=== PATIENT | female | born 1985 | race Caucasian/White ===

== ENCOUNTER 2019-06-22 00:34 | Emergency (ER) | payer OTHER ==
[~2019-06-22] VITALS: Ht 165.1 cm; Wt 81.6 kg
[~2019-06-22 00:34] MED LIST: METHYLDOPA250 MG PO; PRENA1 PLUS CO1 EACH PO
[2019-06-22] MEDS ORDERED: VENTOLIN HFA18 GM INH (00:44)
[2019-06-22] MEDS ORDERED: VENTOLIN HFA18 GM (00:45)
[2019-06-22] MEDS ORDERED: PREDNISONE20 MG PO (02:51)
[2019-06-22] MEDS ORDERED: IPRAT-ALBUT 0.5-3 ML INH (02:51)
--- NOTE | 2019-06-22 16:14 | EKG ---
[facility] [address] [facility] [place] [address] Signed Sinus tachycardia Biatrial enlargement T wave abnormality, consider inferior ischemia Abnormal ECG No previous ECGs available Confirmed by JOSE SANDERS MD ([id number]) on 06/22/2019 4:14:02 PM Electronically Signed By: JOSE SANDERS MD 06/22/19 1614 PATIENT NAME: JOLENE BELLORA RODRIGUEZ Electrocardiogram DATE OF : 83 PHYSICIAN: JOSE SANDERS MD REPORT #: [id number] REPORT IS CONFIDENTIAL AND NOT TO BE RELEASED WITHOUT AUTHORIZATION
== END 2019-06-22 02:57 | disposition home or self-care (01) ==
LOC: ED 00:34
DX: J45.901 Unspecified asthma with (acute) exacerbation (principal); I10 Essential (primary) hypertension; F17.200 Nicotine dependence, unspecified, uncomplicated
CPT/HCPCS: 71045; 80053; 83735; 84484; 84703; 85025; 93005; 93010; 94640; 96374; 96375; 96376; 99285-25; J2270; J2405; J2930; J7030

== ENCOUNTER 2019-12-10 23:03 | Emergency (ER) | payer OTHER ==
[~2019-12-10] VITALS: Ht 167.6 cm; Wt 81.7 kg
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
--- OUTSIDE RECORDS SUMMARY | ~2019-12-10 | XMS | Encounter Summary ---
Demographics + + + | Address | [address] | | | [place] [address] | + + + | Home Phone | | + + + | Preferred Language | Unknown | + + + | Marital Status | | + + + | Judaism Affiliation | Unknown | + + + | Race | Unknown | + + + | Ethnic Group | Unknown | + + + Author + + + | Author | [facility] | | | and [place] | + + + | Organization | [facility] | | | and [place] | [...] Team Providers + +------+ + | Care Manager Wellness Name | Role | Phone | + +------+ + | Leeanne Denny | PCP | | + +------+ + Reason for Visit +--------+ + | Reason | Comments | +--------+ + | Other | PATRICIO for azelastine | +--------+ + Encounter Details +--------+ + + + + | Date | Type | Department | Care Team | Description | +--------+ + + + + | 11/11/ | Documentati | [facility] | Keerthi, | Other (PATRICIO for | | 2019 | on | PULMONOLOGY [address] | Juli Barrios [facility] | brianda) | | | | [address] | Lens Assistant | | | | | [place], [place] | | | | | | [address] | | | | | | [phone] | | | +--------+ + + + + Social History + +-------+ +--------+------+ | Tobacco Use | Types | Packs/Day | Years | Date | | | | | Used | | + +-------+ +--------+------+ | Current Some Day | | | | | | Smoker | | | | | + +-------+ +--------+------+ + +---+---+---+ | Smokeless Tobacco: | | [...] + + documented as of this encounter Progress Notes Juli Pendleton, Bobcat Operator - 11/12/2019 8:28 AM PDTPA for azelastine w as approved. Labeled and scanned approval into pt chart documented in this encounter Plan of Treatment +--------+ + + + + | Date | Type | Specialty | Care Team | Description | +--------+ + + + + | 12/22/ | Virtual | Pulmonology | Ramandeep Betts, | | 2019 | Office | | [facility] | | | | Visit | | [address] [place], | | | | | | [place] [address] | | | | | | [phone] | | | | | | | | +--------+ + + + + documented as of this encounter Visit Diagnoses Not on filedocumented in this encounter"
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
--- OUTSIDE RECORDS SUMMARY | ~2019-12-10 | XMS | Clinical Summary ---
Demographics + + + | Address | [address] | | | [place] [address] | + + + | Home Phone | | + + + | Preferred Language | Unknown | + + + | Marital Status | | + + + | Mandaeism Affiliation | Unknown | + + + | Race | Unknown | + + + | Ethnic Group | Unknown | + + + Author + + + | Author | [facility] | | | and [place] | + + + | Organization | [facility] | | | and [place] [...] Team Providers + +------+ + | Care News Technical Director Name | Role | Phone | + +------+ + | Leeanne Denny | PCP | | + +------+ + Allergies No Known Allergies Medications + + + +---------+------+------+-------+ | Medication | Sig | Dispensed | Refills | Star | End | Statu | | | | | | t | Date | s | | | | | | Date | | | + + + +---------+------+------+-------+ | lisinopril | | | 0 | 01/2 | | Activ | | (PRINIVIL, ZESTRIL) | | | | 9/20 | | e | | 10 mg tablet | | | | 20 | | | + + + +---------+------+------+-------+ | | | | 0 | 02/1 | | Activ | | albuterol-ipratropiu | | | | 8/20 | | e | | m 2.5-0.5 mg/3 mL | | | | 20 | | | | SOLN | | | | | | | + + + +---------+------+------+-------+ | CHANTIX STARTING | | | 0 | 02/1 | | Activ | | MONTH CHANDA 0.5 MG X | | | | 8/20 | | e | | 11 & 1 MG X 42 | | | | 20 | | | | tablet | | | | | | | + + + +---------+------+------+-------+ | fluticasone | 1 spray by Nasal | 18.2 mL | 11 | 03/1 | | Activ | | (FLONASE) 50 | route 2 times daily. | | | 0/20 | | e | | mcg/nasal | | | | 20 | | | | sprayIndications: | | | | | | | | Seasonal allergic | | | | | | | | rhinitis due to | | | | | | | | pollen | | | | | | | + + + +---------+------+------+-------+ | montelukast | Take 1 tablet by | 30 | 11 | 03/1 | | Activ | | (SINGULAIR) 10 mg | mouth Daily. | tablet | | 0/20 | | e | | tabletIndications: | | | | 20 | | | | Moderate persistent | | | | | | | | asthma without | | | | | | | | complication, | | | | | | | | Seasonal allergic | | | | | | | | rhinitis due to | | | | | | | | pollen | | | | | | | + + + +---------+------+------+-------+ | famotidine | Take 1 tablet by | 60 | 5 | 03/1 | | Activ | | (PEPCID) 20 mg | mouth 2 times daily. | tablet | | 0/20 | | e | | tabletIndications: | | | | 20 | | | | Gastroesophageal | | | | | | | | reflux disease, | | | | | | | | esophagitis presence | | | | | | | | not specified | | | | | | | + + + +---------+------+------+-------+ | albuterol 2.5 mg/3 | Take 3 mLs by | 120 | 4 | 03/1 | | Activ | | mL nebulizer | nebulization every 4 | vial | | 0/20 | | e | | solutionIndications: | hours as needed for | | | 20 | | | | Moderate persistent | Wheezing or | | | | | | | asthma without | Shortness of Breath. | | | | | | | complication | | | | | | | + + + +---------+------+------+-------+ | | take 1 tablet by | | 0 | 03/1 | | Activ | | lisinopril-hydrochlo | mouth every morning | | | 8/20 | | e | | rothiazide | | | | 20 | | | | (PRINZIDE,ZESTORETIC | | | | | | | | ) 20-25 MG per | | | | | | | | tablet | | | | | | | + + + +---------+------+------+-------+ | | Inhale 2 puffs into | 1 | 11 | 04/0 | | Activ | | fluticasone-salmeter | the lungs 2 times | Inhaler | | 7/20 | | e | | ol (ADVAIR HFA) | daily. | | | 20 | | | | 115-21 MCG/ACT | | | | | | | | inhalerIndications: | | | | | | | | Severe persistent | | | | | | | | asthma without | | | | | | | | complication | | | | | | | + + + +---------+------+------+-------+ | cetirizine | Take 1 tablet by | 30 | 11 | 04/0 | | Activ | | (ZYRTEC) 10 mg | mouth Daily. | tablet | | 7/20 | | e | | tabletIndications: | | | | 20 | | | | Seasonal allergic | | | | | | | | rhinitis due to | | | | | | | | pollen | | | | | | | + + + +---------+------+------+-------+ | tiotropium | Inhale 2 puffs into | 1 | 11 | 04/0 | | Activ | | (SPIRIVA RESPIMAT) | the lungs Daily. | Inhaler | | 7/20 | | e | | 1.25 mcg/puff | | | | 20 | | | | inhalerIndications: | | | | | | | | Severe persistent | | | | | | | | asthma without | | | | | | | | complication | | | | | | | + + + +---------+------+------+-------+ | azelastine 0.1% | 1 spray by Nasal | 30 mL | 11 | 04/2 | | Activ | | nasal | route 2 times daily. | | | 8/20 | | e | | sprayIndications: | Use in each nostril | | | 20 | | | | Seasonal allergic | twice a day | | | | | | | rhinitis due to | | | | | | | | pollen | | | | | | | + + + +---------+------+------+-------+ | budesonide | Take 2 mLs by | 15 vial | 2 | 05/1 | | Activ | | (PULMICORT) 0.5 mg/2 | nebulization 2 times | | | 2/20 | | e | | mL nebulizer | daily. If you | | | 20 | | | | solutionIndications: | choose to come off | | | | | | | Severe persistent | of the prednisone | | | | | | | asthma with acute | tabs for a few days, | | | | | | | exacerbation | use these in combo | | | | | | | | w/ inhalers and | | | | | | | | albuterol nebs. | | | | | | + + + +---------+------+------+-------+ | predniSONE | Take 2 tabs x 4 | 20 | 0 | 05/1 | | Activ | | (DELTASONE) 20 mg | days, 1.5 tabs x 4 | tablet | | 2/20 | | e | | tabletIndications: | days, 1 tab x 4 | | | 20 | | | | Severe persistent | days, 0.5 tab x 4 | | | | | | | asthma with acute | days. Stop. | | | | | | | exacerbation | | | | | | | + + + +---------+------+------+-------+ | benralizumab | Inject | 1 mL | 11 | 05/1 | | Activ | | (FASENRA) 30 mg/mL | subcutaneously Q 4 | | | 9/20 | | e | | injection | weeks x 3 doses then | | | 20 | | | | (syringe)Indications | Q 8 weeks | | | | | | | : Severe persistent | therafter. | | | | | | | asthma with acute | | | | | | | | exacerbation | | | | | | | + + + +---------+------+------+-------+ | albuterol 90 | Inhale 2 puffs into | 1 | 11 | 06/0 | | Activ | | mcg/puff | the lungs every 4 | Inhaler | | 2/20 | | e | | inhalerIndications: | hours as needed for | | | 20 | | | | Severe persistent | Wheezing or | | | | | | | asthma with acute | Shortness of Breath | | | | | | | exacerbation | (10-15min before | | | | | | | | strenuous activity). | | | | | | + + + +---------+------+------+-------+ | predniSONE | Take 40mg x 5 days | 40 | 0 | 06/0 | | Activ | | (DELTASONE) 20 mg | then 20mg | tablet | | 2/20 | | e | | tabletIndications: | thereafter. | | | 20 | | | | Severe persistent | | | | | | | | asthma with acute | | | | | | | | exacerbation | | | | | | | + + + +---------+------+------+-------+ | albuterol 90 | Inhale 2 puffs into | 2 | 11 | 03/1 | 06/0 | Disco | | mcg/puff | the lungs every 4 | Inhaler | | 0/20 | 2/20 | ntinu | | inhalerIndications: | hours as needed for | | | 20 | 20 | ed | | Moderate persistent | Wheezing or | | | | | | | asthma without | Shortness of Breath. | | | | | | | complication | | | | | | | + + + +---------+------+------+-------+ | predniSONE | Take 2 tabs x 4 | 20 | 0 | 04/2 | 05/1 | Disco | | (DELTASONE) 20 mg | days, 1.5 tabs x 4 | tablet | | 8/20 | 2/20 | ntinu | | tabletIndications: | days, 1 tab x 4 | | | 20 | 20 | ed | | Severe persistent | days, 0.5 tab x 4 | | | | | (Reor | | asthma with acute | days. Stop. | | | | | dagoberto) | | exacerbation | | | | | | | + + + +---------+------+------+-------+ Active Problems + + + | Problem | Noted Date | + + + | Moderate persistent asthma without complication | 09/16/2019 | + + + | Seasonal allergic rhinitis due to pollen | 09/16/2019 | + + + | Gastroesophageal reflux disease | 09/16/2019 | + + + | Essential hypertension | 09/16/2019 | + + + Encounters +--------+ + + + + | Date | Type | Specialty | Care Team | Description | +--------+ + + + + | 12/08/ | Virtual | Pulmonology | Ramandeep Betts, | Severe persistent | | 2020 | Office | | [employer] | asthma with acute | | | Visit | | | exacerbation | | | | | | (Primary Dx); | | | | | | Seasonal allergic | | | | | | rhinitis due to | | [...] disturbance | +--------+ + + + + | 12/02/ | Documentati | Pulmonology | Keerthi, | Other (faxed fasenra | | 2019 | on | | Evans Rinal[facility] | papers) | | | | | Production Sanitizer | | +--------+ + + + + | 12/01/ | Documentati | Pulmonology | Keerthi, | Other (chart notes | | 2019 | on | | [facility] | from PCP) | | | | | Production Sanitizer | | +--------+ + + + + | 12/01/ | Documentati | Pulmonology | Keerthi, | Other (Asthma | | 2019 | on | | [facility] | control test) | | | | | Production Sanitizer | | +--------+ + + + + | 11/24/ | Office | Pulmonology | Ramandeep Betts, | Severe persistent | | 2019 | Visit | | [employer] | asthma with acute | | | | | | exacerbation | | | | | | (Primary Dx); | | | | | | Seasonal allergic | | | | | | rhinitis due to | | [...] disturbance | +--------+ + + + + | 11/23/ | Telephone | Pulmonology | Ramandeep Betts, | Other (appointment | 2019 | | | [employer] | screening) | +--------+ + + + + | 11/17/ | Virtual | Pulmonology | Ramandeep Betts, | Severe persistent | 2019 | Office | | [employer] | asthma with acute | | | Visit | | | exacerbation | | | | | | (Primary Dx); | | | | | | Seasonal allergic | | | | | | rhinitis due to | | [...] disturbance | +--------+ + + + + | 11/11/ | Documentati | Pulmonology | Keerthi, | Other (PA for | | 2019 | on | | [facility] | brianda) | | | | | Production Sanitizer | | +--------+ + + + + | 11/03/ | Virtual | Pulmonology | Ramandeep Betts, | Severe persistent | | 2019 | Office | | EXP[employer] HAND | asthma with acute | | | Visit | | | exacerbation | | | | | | (Primary Dx); | | | | | | Seasonal allergic | | | | | | rhinitis due to | | [...] disturbance | +--------+ + + + + | 11/02/ | Documentati | Pulmonology | Keerthi, | Other (request | | 2020 | on | | [facility] | records from [place] | | | | | [employer] | sleep cntr) | +--------+ + + + + | 10/13/ | Virtual | Pulmonology | Ramandeep Betts, | Severe persistent | | 2020 | Office | | EXP[employer] | asthma without | | | Visit | | | complication | | | | | | (Primary Dx); | | | | | | Seasonal allergic | | | | | | rhinitis due to | | [...] disturbance | +--------+ + + + + | 09/17/ | Documentati | Pulmonology | Keerthi, | Other (records from | | 2019 | on | | [facility] | PCP) | | | | | Production [employer] | | +--------+ + + + + | 09/15/ | Office | Pulmonology | Ramandeep Betts, | Moderate persistent | 2019 | Visit | | [employer] | asthma without | | | | | | complication | | | | | | (Primary Dx); | | | | | | Seasonal allergic | | | | | | rhinitis due to | | | | | | pollen; | | | | | | Gastroesophageal | | | | | | reflux disease, | | | | | | esophagitis presence | | | | | | not specified; | | | | | | Tobacco use | +--------+ + + + + | 09/15/ | Orders Only | | Robyn Sultana, | Moderate persistent | | 2019 | | | Television T[employer] | asthma without | | | | | | complication; | | | | | | Seasonal allergic | | | | | | rhinitis due to | | | | | | pollen | +--------+ + + + + from Last 3 Months Social History + +-------+ +--------+ + | [...] recent travel history available. | + + Last Filed Vital Signs + + + [...] | | + + + + + Plan of Treatment +--------+ + + + + | Date | Type | Specialty | Care Team | Description | +--------+ + + + + | 12/22/ | Virtual | Pulmonology | Ramandeep Betts, | | | 2019 | Office | | [facility] | | | | Visit | | [address], | | | | | | [place] [address] | | | | | | [phone] | | | | | | | | +--------+ + + + + + + + + + | Health Maintenance | Due Date | Last Done | Comments | + + + + + | Vaccine: | | | | | Pneumococcal 19-64 | 1 | | | | (1 of 1 - PPSV23) | | | | + + + + + | Cervical Cancer | | | | | Screening (Pap) | 5 | | | + + + + + | Vaccine: | | 08/06/2013, 11/22/2007, | | | Dtap/Tdap/Td (7 - | 4 | 03/01/1998, Additional history | | | Td) | | exists | | + + + + + | Vaccine: Influenza | Completed | 06/20/2019, 04/16/2013 | | + + + + + Procedures + +--------+ + + + | Procedure Name | Priori | Date/Time | Associated Diagnosis | Comments | | | ty | | | | + +--------+ + + + | ALLERGEN PANEL, | Routin | 09/16/2019 | Moderate | Results for this | | [facility] | e | 10:48 AM | persistent asthma | procedure are in the | | | | PDT | without complication | results section. | | | | | Seasonal allergic | | | | | | rhinitis due to | | | | | | pollen | | + +--------+ + + + | CBC WITH | Routin | 09/16/2019 | Moderate | Results for this | | DIFFERENTIAL | e | 10:48 AM | persistent asthma | procedure are in the | | | | PDT | without complication | results section. | + +--------+ + + + from Last 3 Months Results Allergen Panel, [facility] (09/16/2019 10:48 AM PDT) + + + + + + | Component | Value | Ref Range | Performed | Pathologist | | | | | At | Signature | + + + + + + | Class | (See Below)Comment: | | REFERENCE | | | Description | Levels of Specific IgE | | LAB | | | | Class | | [facility] | | | | Description of Class | | LABORATORY | | | | | | | | | | | | | | | | --- ----- | | | | | | | | | | | | | | | | | | < 0.10 0 | | | | | | Negative | | | | | | 0.10 - | | | | | | 0.31 0/I | | | | | | Equivocal/Low | | | | | | 0.32 - | | | | | | 0.55 I | | | | | | Low | | | | | | 0.56 - 1.40 | | | | | | II | | | | | | Moderate | | | | | | 1.41 - 3.90 | | | | | | III High | | | | | | 3.91 - | | | | | | 19.00 IV | | | | | | Very High | | | | | | 19.01 - 100.00 | | | | | | V | | | | | | Very High | | | | | | >100.00 | | | | | | | | | | | | Very High | | | | + + + + + + | Immunoglobu | 335 | 6 - 495 IU/mL | REFERENCE | | | jeb IgE | | | LAB | | | | | | [facility] | | | | | | LABORATORY | | + + + + + + | D. | 0.17 (A) | Class 0/I kU/L | REFERENCE | | | Pteronyssin | | | LAB | | | us IgE | | | [facility] | | | | | | LABORATORY | | + + + + + + | Cat Dander | <0.10 | Class 0 kU/L | REFERENCE | | | IgE | | | LAB | | | | | | [facility] | | | | | | LABORATORY | | + + + + + + | Dog Dander | 0.11 (A) | Class 0/I kU/L | REFERENCE | | | IgE | | | LAB | | | | | | [facility] | | | | | | LABORATORY | | + + + + + + | Rosalio | <0.10 | Class 0 kU/L | REFERENCE | | | Grass IgE | | | LAB | | | | | | [facility] | | | | | | LABORATORY | | + + + + + + | Cockroach, | <0.10 | Class 0 kU/L | REFERENCE | | | Scottish IgE | | | LAB | | | | | | [facility] | | | | | | LABORATORY | | + + + + + + | ALLERGEN | <0.10 | Class 0 kU/L | REFERENCE | | | ALTERNARIA | | | LAB | | | ALTERNATA | | | [facility] | | | IGE | | | LABORATORY | | + + + + + + | Trotter Marci | 0.41 (A) | Class I kU/L | REFERENCE | | | IgE | | | LAB | | | | | | [facility] | | | | | | LABORATORY | | + + + + + + | [place] | 0.75 (A) | Class II kU/L | REFERENCE | | | IgE | | | LAB | | | | | | [facility] | | | | | | LABORATORY | | + + + + + + | SILVER | 0.34 (A) | Class I kU/L | REFERENCE | | | BIRCH, IGE | | | LAB | | | | | | [facility] | | | | | | LABORATORY | | + + + + + + | [place] | 0.18 (A) | Class 0/I kU/L | REFERENCE | | | IgE | | | LAB | | | | | | [facility] | | | | | | LABORATORY | | + + + + + + | [place] | 0.47 (A) | Class I kU/L | REFERENCE | | | IgE | | | LAB | | | | | | [facility] | | | | | | LABORATORY | | + + + + + + | Pigweed | <0.10 | Class 0 kU/L | REFERENCE | | | Grass IgE | | | LAB | | | | | | [facility] | | | | | | LABORATORY | | + + + + + + | Barb[place] | <0.10 | Class 0 kU/L | REFERENCE | | | Thistle IgE | | | LAB | | | | | | [facility] | | | | | | LABORATORY | | + + + + + + | Allergen | 0.13 (A)Comment: Testing | Class 0/I kU/L | REFERENCE | | | Ragweed, | performed by [facility], | | LAB | | | [facility] | [address], | | [facility] | | | | [facility] [address] | | LABORATORY | | + + + + + + + + | Specimen | + + | Blood | + + + + + + + | Performing | Address | City/State/Zipcode | Phone Number | | Organization | | | | + + + + + | REFERENCE LAB | [address] | [place] | [phone] | | [facility] | [address] | [address] | | | LABORATORY | | | | + + + + + | REFERENCE LAB | [address] | [place] | | | [facility] | [address] | [address] | | | LABORATORY | | | | + + + + + CBC with Differential (09/16/2019 10:48 AM PDT) + + + + + + | Component | Value | Ref Range | Performed | Pathologist | | | | | At | Signature | + + + + + + | WBC | 9.84 | 3.80 - 11.00 | REFERENCE | | | | | K/uL | LAB | | | | | | [facility] | | | | | | LABORATORY | | + + + + + + | RBC | 4.54 | 3.70 - 5.10 | REFERENCE | | | | | M/uL | LAB | | | | | | [facility] | | | | | | LABORATORY | | + + + + + + | Hemoglobin | 15.2 | 11.3 - 15.5 | REFERENCE | | | | | g/dL | LAB | | | | | | [facility] | | | | | | LABORATORY | | + + + + + + | Hematocrit | 43.5 | 34.0 - 46.0 % | REFERENCE | | | | | | LAB | | | | | | [facility] | | | | | | LABORATORY | | + + + + + + | MCV | 95.8 | 80.0 - 100.0 fl | REFERENCE | | | | | | LAB | | | | | | [facility] | | | | | | LABORATORY | | + + + + + + | MCH | 33.4 | 27.0 - 34.0 pg | REFERENCE | | | | | | LAB | | | | | | [facility] | | | | | | LABORATORY | | + + + + + + | MCHC | 34.9 | 32.0 - 35.5 | REFERENCE | | | | | g/dL | LAB | | | | | | [facility] | | | | | | LABORATORY | | + + + + + + | RDW-SD | 43.3 | 37 - 53 fl | REFERENCE | | | | | | LAB | | | | | | [facility] | | | | | | LABORATORY | | + + + + + + | Platelet | 263 | 150 - 400 K/uL | REFERENCE | | | Count | | | LAB | | | | | | [facility] | | | | | | LABORATORY | | + + + + + + | MPV | 9.1 | fl | REFERENCE | | | | | | LAB | | | | | | [facility] | | | | | | LABORATORY | | + + + + + + | Diff Type | AUTOMATED | | REFERENCE | | | | | | LAB | | | | | | [facility] | | | | | | LABORATORY | | + + + + + + | % | 59.79 | % | REFERENCE | | | Neutrophils | | | LAB | | | | | | [facility] | | | | | | LABORATORY | | + + + + + + | % | 27.95 | % | REFERENCE | | | Lymphocytes | | | LAB | | | | | | [facility] | | | | | | LABORATORY | | + + + + + + | Monocyte % | 5.57 | % | REFERENCE | | | | | | LAB | | | | | | [facility] | | | | | | LABORATORY | | + + + + + + | Eosinophils | 5.32 | % | REFERENCE | | | % | | | LAB | | | | | | [facility] | | | | | | LABORATORY | | + + + + + + | Basophils % | 1.37 | % | REFERENCE | | | | | | LAB | | | | | | [facility] | | | | | | LABORATORY | | + + + + + + | Neutrophils | 5.88 | 1.90 - 7.40 | REFERENCE | | | , Absolute | | K/uL | LAB | | | | | | [facility] | | | | | | LABORATORY | | + + + + + + | Absolute | 2.75 | 1.00 - 3.90 | REFERENCE | | | Lymphocytes | | K/uL | LAB | | | | | | [facility] | | | | | | LABORATORY | | + + + + + + | Absolute | 0.55 | 0.00 - 0.80 | REFERENCE | | | Monocytes | | K/uL | LAB | | | | | | [facility] | | | | | | LABORATORY | | + + + + + + | Eosinophils | 0.52 (H) | 0.00 - 0.50 | REFERENCE | | | , Absolute | | K/uL | LAB | | | | | | [facility] | | | | | | LABORATORY | | + + + + + + | Basophils, | 0.14 (H)Comment: Testing | 0.00 - 0.10 | REFERENCE | | | Absolute | performed at [facility];[address] | K[address] | LAB | | | | [address] | | [facility] | | | | [address];[place] [address] | | LABORATORY | | + + + + + + + + | Specimen | + + | Blood | + + + + + + + | Performing | Address | City/State/Zipcode | Phone Number | | Organization | | | | + + + + + | REFERENCE LAB | [address] | [place] | [phone] | | [facility] | [address] | [address] | | | LABORATORY | | | | + + + + + | REFERENCE LAB | [address] | [place] | | | [facility] | [address]. | [address] | | | LABORATORY | | | | + + + + + from Last 3 Months Insurance + +--------+ +--------+ +---------+--------+ | Payer | Benefi | Subscriber | Effect | Phone | Address | Type | | | t Plan | ID | agnes | | | | | | / | | Dates | | | | | | Group | | | | | | + +--------+ +--------+ +---------+--------+ | [employer] | [employer] | [id number] | | [phone] | | Medica | | MEDICAID HMO | HEALTH | | [phone]-Pr | 1 | | id | | | MDCD | | esent | | | | | | [place]MO [place] | | | | | | + +--------+ +--------+ +---------+--------+ + +--------+ +--------+ + + | Guarantor Name | Accoun | Relation to | Date | Phone | Billing Address | | | t Type | Patient | of | | | | | | | | | | + +--------+ +--------+ + + | Kyle Martinez | Person | Self [birth year] | [address] | | | al/Fam | | 1986 | [phone] | [place] [address] | | | damion | | | 8 (Home) | | | | | | | [phone] | | | | | | | 1 (Work) | | + +--------+ +--------+ + + Advance Directives + + + + + | Type | Date Recorded | Patient | Explanation | | | | Mail Carrier Technician | | + + + + + | Power of | | | | | Tenterer | | | | + + + + + | Advance | | | | | Directive | | | | + + + + +
--- OUTSIDE RECORDS SUMMARY | ~2019-12-10 | XMS | Encounter Summary ---
Demographics + + + | Address | [address] | | | [place] [address] | + + + | Home Phone | | + + + | Preferred Language | Unknown | + + + | Marital Status | | + + + | Adventist Affiliation | Unknown | + + + | Race | Unknown | + + + | Ethnic Group | Unknown | + + + Author + + + | Author | [facility] | | | and [place] | + + + | Organization | [facility] | | | and [place] [...] Team Providers + +------+ + | Care Kiln Door Repairer Name | Role | Phone | + [...] | | | (acute) | [place], | [place], [place] | | | | | exacerbation | [place] | [address] | | | | | | [address] | Phone: | | | | | | Phone: | [phone] | | | | | | [phone] | Fax: | | | | | | Fax: | [phone] | | | | | | [phone] | | + +--------+ + + + + Encounter Details +--------+ + + + + | Date | Type | Department | Care Team | Description | +--------+ + + + + | 11/03/ | Virtual | [facility] | Ramandeep Betts, | Severe persistent | | 2019 | Office | PULMONOLOGY [address] | HOUSEKEEPER [address] | asthma with acute | | | Visit | KATHRIN COREA | [address] [place], | exacerbation | | | | [place], [place] | [place] [address] | (Primary Dx); | | | | [address] | [phone] | Seasonal allergic | | | | [phone] | | rhinitis due to | | [...] documented as of this encounter Progress Notes Ramandeep Betts ARNP - 11/04/2019 10:30 AM PDTFormatting of this note might be different fr om the original. Subjective: Patient ID: Kyle Martinez is a 34 y.o. female. History of moderate persistent asthma, HTN, anxiety, anemia, current smoker. Initial HPI 09/16/19: Kyle Martinez is a [...] appetite, or unintentional weight loss. Interval HPI 11/04/19: Kyle Martinez is a 34 y.o. female presenting today for a virtual vis it. She has chosen this method of follow up to limit her potential exposure to COVID19. This exam was initially conducted via a secure 256-bit AES encrypted bidirectional video se ssion. Service was provided [id number] with the patient via interactive videoconferencing Video start time 1030 Video end time 1055 Total time (in minutes) including non gjuy-ou-tfhl time (reviewing records, documentation, etc..) 35min You have chosen to receive care through the use of telemedicine. Telemedicine enables [facility] care providers at different locations to provide [...] where are you physically located right now? [place], [place] Answer: Patient confirms they are located in a state where Ramandeep Vasquez HOUSEKEEPER am lice nsed ([place]) She reports today she is coughing and having more shortness of breath in last week. Using a lbuterol nebs BID with good relief of dry cough and dyspnea. Coughing throughout the day and night. Sleep is poorly affected by the cough this week. She denies any constitutional sympt oms in association with respiratory symptoms. The patient reports the following: DYSPNEA: with minimal exertion x 2 weeks. She notes a good initial response to addition of advair and spiriva for 2 weeks she felt well controlled, but with beginning of spring , symptoms have been poorly controlled again. COUGH: throughout the day, barking and dry in nature. Clear phlegm only in the mornings. ACUTE EXACERBATION: currently exacerbated today. reports 3 exacerbations since July, 0. EXPOSURES: current smoker. She is trying to cut back with use of chantix. Now down to a c igarette every few days EXERCISE: no formal exercise lately. ACTIVITIES OF DAILY LIVING: able to complete without dyspnea. CONSTITUTIONAL SYMPTOMS: denies fever, chills, body aches, night sweats, poor appetite or w eight loss. SINO-NASAL SYMPTOMS: congestion, pnd and rhinitis with increase in pollen last 2 weeks. REFLUX or REGURGITATION: this is much better on famotidine 20mg BID. She is also sleepin g at an incline. SLEEP: better lately. Notes she is waking up for no reason 3 x a night and for breathing trouble 1 x a night. This is improved from last visit when she was waking up several times a night with breathing trouble. CHEST PAINS: denies ORTHOPNEA OR PND (Paroxysmal [...] zyrtec nightly, singulair nightly, flonase BID, lisinopril HCTZ, chantix. Social Hx: Originally from [place], lives in [place] for last 1 year. 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 She i s a current smoker, [...] dog indoors. Recently bought a group of [employer] ks she is taking care of. She [...] mg/3 mL SOLN, , Disp: , Rfl: cetirizine (ZYRTEC) 10 mg tablet, Take 1 [...] mouth Daily., Disp: 30 tablet, Rfl: 11 tiotropium (SPIRIVA RESPIMAT) 1.25 mcg/puff inhaler, Inhale [...] Grass IgE Class 0 kU/L <0.10 Cockroach, Arabic IgE Class 0 kU/L <0.10 ALLERGEN ALTERNARIA ALTERNATA IGE Class 0 kU/L <0.10 Trotter [place] IgE Class I kU/L 0.41 (A) [place] IgE Class II kU/L 0.75 (A) SILVER BIRCH, IGE Class I kU/L 0.34 (A) [place] Tree IgE Class 0/I kU/L 0.18 (A) [place] Tree IgE Class I kU/L 0.47 (A) Pigweed Grass IgE Class 0 kU/L <0.10 Ang[place] Thistle IgE Class 0 kU/L <0.10 Allergen Ragweed, Western Class 0/I kU/L 0.13 (A) Absolute eosinophils 09-04-2018: 400 Imaging: CXR 06-22-19 at [facility]: Impression: No acute cardiopulmonary abnormality - Dr Rush Hidalgo CXR 09-10-2018: FINDINGS: No consolidation or interstitial infiltrate is identified. Costophrenic angles ar e well defined. Cardiomediastinal contours are stable. IMPRESSION: 1. No acute cardiopulmonary disease. Pulmonary Function Test: 09-10-19 at [facility] FEV1: 1.19/36 2.06/63 FVC: 2.58/66 4.04/103 [...] symptoms of infection. I will provide a long 40mg prednisone taper for the exacerbation. We have also discussed ne xt steps today including biologic therapy, possibly with Fasenra, if she remains poorly cont rolled. - predniSONE (DELTASONE) 20 mg tablet; Take [...] with zyrtec, singulair, and flonase BID. I am adding astelin to her regimen today. She still has not started sinus rinsing, I have encouraged her to start this today. - azelastine 0.1% nasal spray; 1 spray by Nasal route 2 times daily. Use in each nostril tw ice a day Dispense: 30 mL; Refill: 11 3. Gastroesophageal reflux disease, esophagitis presence not specified This has improved on famotidine BID. She reports that midday chest tightness and cough also seems to improve when she takes this med vs when she forgets to take it. She is also sleepi ng at an incline with more relief at night. 4. Tobacco use She has been on chantix for a month and is cutting back currently. She is smoking a cigaret te every few days lately. She is motivated to quit and notices that smoking increases her dy spnea. Will continue to encouraged cessation at subsequent visits. 5. Sleep disturbance Reports her sleep partner states she has pauses in breathing and snoring at night. Her BP h as been very poorly controlled despite the addition of HCTZ to her lisinopril. I have referr ed her for sleep study locally in [place], however, she awaits call back from sleep center fo r initial appointment. Unfortunately, sleep centers are closed due to COVID19 at this time. Continue sleeping at incline for the time being. It is a pleasure to be a part of Kyle Martinez's care team. Follow up in 2 weeks. She was e ncouraged to return if needed for urgent appointment, and should present to the ED for emerg ent symptoms. Please feel free to contact us if questions or concerns arise. [facility] PULMONOLOGY [address] [place] [address] Dept: [phone] FAX: [phone] I have discussed my findings and plan with Dr Garza today. We are in agreement with the irineo carter's plan of care as detailed above. This note was dictated using voice recognition software. Please contact me if there are an y questions regarding its content. documented in agus e ncounter Plan of Treatment +--------+ + + + + | Date | Type | Specialty | Care Team | Description | +--------+ + + + + | 12/22/ | Virtual | Pulmonology | Ramandeep Betts, | | 2019 | Office | | [address] | | | | Visit | | DR [place], | | | | | | [place] [address] | | | | | | [phone] | | | | | | | [...]
--- OUTSIDE RECORDS SUMMARY | ~2019-12-10 | XMS | Encounter Summary ---
Demographics + + + | Address | [address] | | | [place] [address] | + + + | Home Phone | | + + + | Preferred Language | Unknown | + + + | Marital Status | | + + + | Rastafari Affiliation | Unknown | + + + | Race | Unknown | + + + | Ethnic Group | Unknown | + + + Author + + + | Author | [facility] | | | and [place] | + + + | Organization | [facility] | | | and [place] [...] Team Providers + +------+ + | Care Rv Servicer Name | Role | Phone | + [...] | | | (acute) | [place], | [place], [place] | | | | | exacerbation | [place] | [address] | | | | | | [address] | Phone: | | | | | | Phone: | [phone] | | | | | | [phone] | Fax: | | | | | | Fax: | [phone] | | | | | | [phone] | | + +--------+ + + + + Encounter Details +--------+ + + + + | Date | Type | Department | Care Team | Description | +--------+ + + + + | 11/03/ | Virtual | [facility] | Ramandeep Betts, | Severe persistent | | 2019 | Office | PULMONOLOGY [address] | SALES REPRESENTATIVE WIRE ROPE [address] | asthma with acute | | | Visit | KATHRIN COREA | [address] [place], | exacerbation | | | | [place], [place] | [place] [address] | (Primary Dx); | | | | [address] | [phone] | Seasonal allergic | | | | [phone] | | rhinitis due to | | [...] bidirectional video se ssion. Service was provided [id number]-gopa with the patient via interactive videoconferencing Video start time 1030 Video end time 1055 Total time (in minutes) including non kiut-nc-qwct time (reviewing records, documentation, etc..) 35min You have chosen to receive care through the use of telemedicine. Telemedicine enables [facility] care providers at different locations to [...] located in a state where Ramandeep Vasquez SALES REPRESENTATIVE WIRE ROPE am lice nsed ([place]) She reports today she is coughing and [...] lisinopril HCTZ, chantix. Social Hx: Originally from [place], lives in [place] for last 1 year. 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 She i s a current [...] dog indoors. Recently bought a group of [employer] ks she is taking care of. She [...] Grass IgE Class 0 kU/L <0.10 Cockroach, Maori IgE Class 0 kU/L <0.10 ALLERGEN ALTERNARIA ALTERNATA IGE Class 0 kU/L <0.10 Trotter [place] IgE Class I kU/L 0.41 (A) [place] IgE Class II kU/L 0.75 (A) SILVER BIRCH, IGE Class I kU/L 0.34 (A) [place] Tree IgE Class 0/I kU/L 0.18 (A) [place] Tree IgE Class I kU/L 0.47 (A) Pigweed Grass IgE Class 0 kU/L <0.10 [place] Thistle IgE Class 0 kU/L <0.10 Allergen Ragweed, Western Class 0/I kU/L 0.13 (A) Absolute eosinophils 09-04-2018: 400 Imaging: CXR 06-22-19 at [facility]: Impression: No acute cardiopulmonary abnormality - Dr Rush Hidalgo CXR 09-10-2018: FINDINGS: No consolidation or interstitial infiltrate is identified. Costophrenic angles ar e well defined. Cardiomediastinal contours are stable. IMPRESSION: 1. No acute cardiopulmonary disease. Pulmonary Function Test: 09-10-19 at [facility] FEV1: 1.19/36 2.06/63 FVC: 2.58/66 4.04/103 FEV1/FVC: [...] ed her for sleep study locally in [place], however, she awaits call back from sleep [...] if questions or concerns arise. [facility] [place] [facility] [address] [place] [address] Dept: [phone] FAX: [phone] I have discussed my findings and plan [...] [place], | | | | | | [place] [address] | | | | | | [phone] | | | | | | | [...]
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
--- OUTSIDE RECORDS SUMMARY | ~2019-12-10 | XMS | Encounter Summary ---
Demographics + + + | Address | [address] | | | [place] [address] | + + + | Home Phone | | + + + | Preferred Language | Unknown | + + + | Marital Status | | + + + | Sikhism Affiliation | Unknown | + + + | Race | Unknown | + + + | Ethnic Group | Unknown | + + + Author + + + | Author | [facility] | | | and [place] | + + + | Organization | [facility] | | | and [place] | [...] Team Providers + +------+ + | Care Staffing Director Name | Role | Phone | + +------+ + | Leeanne Denny | PCP | | + +------+ + Reason for Referral Evaluate & Treat (Routine) +--------+ + + + + + | Status | Reason | Specialty | Diagnoses / | Referred By | Referred To | | | | | Procedures | Contact | Contact | +--------+ + + + + + | Denied | Specialty | Sleep | Diagnoses | Alpesh, | | | | Services | Medicine | Sleep | Ramandeep E, | | | | Required | | disturbance | [facility] [facility] [address] | | | | | | | [address] | | | | | | | [place] | | | | | | | [place] | | | | | | | [address] | | | | | | | Phone: | | | | | | | [phone] | | | | | | | Fax: | | | | | | | [phone] | | +--------+ + + + + + Reason for Visit + + + [...] Authorized | | Pulmonology | Diagnoses | Jazlyn Denny | | | | | Moderate | PATRICIO Martins | Pulmonology | | | | | persistent | [address] | [address] | | | | | asthma with | Gigi Pinto | DR [address] | | | | | (acute) | [place], | [facility] | | | | | exacerbation | [place] | [address] | | | | | | [address] | Phone: | | | | | | Phone: | [phone] | | | | | | [phone] | Fax: | | | | | | Fax: | [phone] | | | | | | [phone] | | + +--------+ + + + + Encounter Details +--------+ + + + + | Date | Type | Department | Care Team | Description | +--------+ + + + + | 10/13/ | Virtual | [facility] | Ramandeep Betts, | Severe persistent | | 2020 | Office | PULMONOLOGY [address] | [address] | asthma without | | | Visit | [address] | [address] [place], | complication | | | | [facility] [place] | [place] [address] | (Primary Dx); | | | | [address] | [phone] | Seasonal allergic | | | | [phone] | | rhinitis due to | | [...] as of this encounter Progress Notes Ramandeep Betts, MARC - 10/14/2019 9:30 AM PDTFormatting of this note might be [...] appetite, or unintentional weight loss. Interval HPI 10/14/19: Kyle Martinez is a 34 y.o. female presenting today for a telephonic visit. She reports she has entered [place] [employer] for this visit to ensure we can offer he r this service. The patient reports the following: DYSPNEA: with minimal exertion x 2 weeks. She notes a good initial response to addition of advair and spiriva for 2 weeks she felt well controlled, but she worked in her yard and the spring pollen has increased and has not been breathing well since. COUGH: throughout the day, barking and dry in nature. Clear phlegm only in the mornings. ACUTE EXACERBATION: reports 3 exacerbations since July,. EXPOSURES: current smoker. She is trying to cut back with use of chantix. Now down to a c ouple cigarettes every couple days. EXERCISE: no formal exercise lately. ACTIVITIES OF DAILY LIVING: able to complete independently and without dyspnea CONSTITUTIONAL SYMPTOMS: denies fever, chills, body aches, [...] HFA 5 x a day, albuterol neb nightly. Oxygen Use: none PAP therapy: none, but wants to undergo a sleep study as her sleeping partner states he h ears her have pauses in breathing and snoring at night. Other relevant medications: famotidine 20mg bid, zyrtec nightly, singulair nightly, flonase BID, sinus rinsing daily, lisinopril HCTZ, chantix. ACT score today is 11. Social Hx: Originally from [place], lives in [place] for last 1 year. 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 She i s a current smoker, [...] dog indoors. Recently bought a group of [employer] ks she is taking care of. She [...] 2 times daily., Disp: 1 Inhaler, Rfl: 0 lisinopril (PRINIVIL, ZESTRIL) 10 mg tablet, , Disp: , Rfl: montelukast (SINGULAIR) 10 mg [...] Grass IgE Class 0 kU/L <0.10 Cockroach, Wolof IgE Class 0 kU/L <0.10 ALLERGEN ALTERNARIA ALTERNATA IGE Class 0 kU/L <0.10 [place] IgE Class I kU/L 0.41 (A) [place] IgE Class II kU/L 0.75 (A) SILVER BIRCH, IGE Class I kU/L 0.34 (A) [place] Tree IgE Class 0/I kU/L 0.18 (A) [place] Tree IgE Class I kU/L 0.47 (A) Pigweed Grass IgE Class 0 kU/L <0.10 [place] Thistle IgE Class 0 kU/L <0.10 Allergen Ragweed, Western Class 0/I kU/L 0.13 (A) Absolute eosinophils 09-04-2018: 400 Imaging: CXR 06-22-19 at [facility]: Impression: No acute cardiopulmonary abnormality - Dr Rush Hidalgo CXR 09-10-2018: FINDINGS: No consolidation or interstitial infiltrate is identified. Costophrenic angles ar e well defined. Cardiomediastinal contours are stable. IMPRESSION: 1. No acute cardiopulmonary disease. Pulmonary Function Test: 09-10-19 at [facility] FEV1: 1.19/36 2.06/63 FVC: 2.58/66 4.04/103 [...] very significant bronchodilator response. DLCO is normal. ACT score today: 11 She reports that the addition of adviar 115mcg 2 puffs BID and spiriva respimat has helped reduce her symptoms considerably. She is still using albuterol about 5 x a day, but this is reduced from last visit. She has also reduced albuterol neb use to QPM. She is feeling like she has good and bad days lately. She notes 2 weeks of feeling well just after starting this regimen, and then last two weeks breathing has been poorly controlled again. PNW14 does rev eal she has many environmental allergies and her IGE was 335. Eosinophils were 520. We now k now her asthma drivers and if she continues to be poorly controlled, we will pursue treatmen t with biologic therapy. For the time being, I have asked Kyle to continue with maximum inh aler regimen and increase duoneb to Q 4-6 hours while decreasing the albuterol HFA. This I h ope will give better relief of symptoms. I am refilling her maintenance medications today to be sure she has these meds at her pharmacy. She notes she was outside gardening around the time of the increase in her symptoms. I have suggested she wear a mask when outdoors gardening. When she comes indoors, she should immed iately shower and nasal rinse to remove allergens and reduce overall inflammatory response. She can also consider an air purifier for her bedroom. - fluticasone-salmeterol (ADVAIR HFA) 115-21 MCG/ACT inhaler; Inhale 2 puffs into the lungs 2 times daily. Dispense: 1 Inhaler; Refill: 11 - tiotropium (SPIRIVA RESPIMAT) 1.25 mcg/puff inhaler; Inhale 2 puffs into the lungs Daily. Dispense: 1 Inhaler; Refill: 11 2. Seasonal allergic rhinitis due to pollen Reports sneezing, coughing, post nasal drip, congestion, rhinitis and itchy eyes. She is on ly using afrin as needed and coricidin HBP for congestion. I have suggested sinus rinsing ni ghtly for the congestion, and following this with flonase BID. She reports some improvement in the congestion and post nasal drip on singulair and zyrtec, but not completely resolved w ith the increase in pollen for last couple weeks. Continue with regimen, and sinus rinsing a t least nightly. - cetirizine (ZYRTEC) 10 mg tablet; Take 1 tablet by mouth Daily. Dispense: 30 tablet; Ref ill: 11 3. Gastroesophageal reflux disease, esophagitis presence [...] month and is cutting back currently. She reports she is down from 2 cigs a day to every couple days. She set a quit date for September,, but has not fully stopped yet. She is motivated to quit and notices that smoking increases her dyspnea. Will continue to encouraged cessation at subsequent visits. 5. Sleep disturbance Reports her sleep partner states she has pauses in breathing and snoring at night. Her BP h as been very poorly controlled despite the addition of HCTZ to her lisinopril. Her PCP has s uggested sleep study, but Kyle does not think this has been ordered. I will order this toda y for the [facility] in [place]. Locally, our sleep centers are not performing te sting due to COVID19. I am not sure if [place] centers are open and testing right now or no t. - Ambulatory Referral to Sleep Studies Patient initiated the call/electronic message. The patient agreed to the service. All of the above advise were discussed with the patient. Total time spent: 30min The patient has not been seen in the office within the past 7 days, and the outcome of this call is not to recommend the soonest available office visit. It is a pleasure to be a part of Kyle Martinez's care team. Follow up in 3-4 weeks. She was encouraged to return if needed for urgent appointment, and should present to the ED for irma rgent symptoms. Please feel free to contact us if questions or concerns arise. MARC Skaggs [facility] PULMONOLOGY [address] [place] [address] Dept: [phone] FAX: [phone] I have discussed my findings and plan [...] [place], | | | | | | [place] [address] | | | | | | [phone] | | | | | | | | +--------+ + + + + + + +--------+ + + | Name | Type | Priori | Associated Diagnoses | Order Schedule | | | | ty | | | + + +--------+ + + | Ambulatory Referral | Outpatient | Routin | Sleep disturbance | Ordered: 10/14/2019 | | to Sleep Studies | Referral | e | | | + + +--------+ + + documented as of this encounter Visit Diagnoses + + | Diagnosis | + + | Severe persistent asthma without complication - Primary | + + | Seasonal allergic rhinitis due to pollen | + + | Gastroesophageal reflux disease, esophagitis presence not specified | + + | Tobacco use Tobacco use disorder | + + | Sleep disturbance Sleep disturbance, unspecified | + + documented in this encounter"
--- OUTSIDE RECORDS SUMMARY | ~2019-12-10 | XMS | Encounter Summary ---
Demographics + + + | Address | [address] | | | [place] [address] | + + + | Home Phone | | + + + | Preferred Language | Unknown | + + + | Marital Status | | + + + | Taoism Affiliation | Unknown | + + + | Race | Unknown | + + + | Ethnic Group | Unknown | + + + Author + + + | Author | [facility] | | | and Sumanthana | + + + | Organization | [facility] | | | and [...] Team Providers + +------+ + | Care Cleaner And Polisher Name | Role | Phone | + [...] + + | 11/11/ | Documentati | [facility] | Keerthi, | Other (PATRICIO for | | 2019 | on | PULMONOLOGY 1100 | Juli Barrios [facility] | brianda) | | | | KATHRIN COREA | Ethnology Professor | | | | | [place], [place] | | | | | | [address] | | | | | | [phone] | | | +--------+ + + + [...] of this encounter Progress Notes Juli Pendleton, Blanket Cutting Machine Operator - 11/12/2019 8:28 AM PDTPA for [...] | | | | | | [place] [address] | | | | | | [phone] | | | | | | | | +--------+ + + + + documented as of this encounter Visit Diagnoses Not on filedocumented in this encounter"
--- OUTSIDE RECORDS SUMMARY | ~2019-12-10 | XMS | Encounter Summary ---
Demographics + + + | Address | [address] | | | [place] [address] | + + + | Home Phone | | + + + | Preferred Language | Unknown | + + + | Marital Status | | + + + | Episcopalian Affiliation | Unknown | + + + | Race | Unknown | + + + | Ethnic Group | Unknown | + + + Author + + + | Author | [facility] | | | and Sumanthana | + + + | Organization | [facility] | | | and [place] [...] Team Providers + +------+ + | Care Track Car Operator Name | Role | Phone | + +------+ + | Leeanne Denny | PCP | | + +------+ + Reason for Visit +--------+ + | Reason | Comments | +--------+ + | Other | records from PCP | +--------+ + Encounter Details +--------+ + + + + | Date | Type | Department | Care Team | Description | +--------+ + + + + | 09/17/ | Documentati | [facility] | Keerthi, | Other (records from | | 2020 | on | PULMONOLOGY 1100 | Juli Barrios, [facility] | PCP) | | | | KATHRIN COREA | Prototype Sewer | | | | | [place], [place] | | | | | | [address] | | | | | | [phone] | | | +--------+ + + + [...] of this encounter Progress Notes Juli Pendleton, Senior Accountant Analyst - 09/18/2019 1:00 PM PDTReceived records fr om PCP with last labs done on the patient. Labeled and scanned into patient's chart documented in this encounter Plan of [...] | | | | | | [place] [address] | | | | | | [phone] | | | | | | | | +--------+ + + + + documented as of this encounter Visit Diagnoses Not on filedocumented in this encounter"
--- OUTSIDE RECORDS SUMMARY | ~2019-12-10 | XMS | Encounter Summary ---
Demographics + + + | Address | [address] | | | [place] [address] | + + + | Home Phone | | + + + | Preferred Language | Unknown | + + + | Marital Status | | + + + | Anabaptist Affiliation | Unknown | + + + | Race | Unknown | + + + | Ethnic Group | Unknown | + + + Author + + + | Author | [facility] | | | and Sumanthana | + + + | Organization | [facility] | | | and [place] [...] Team Providers + +------+ + | Care Cathodic Protection Technician Name | Role | Phone | + [...] + + | 09/17/ | Documentati | [facility] | Keerthi, | Other (records from | | 2020 | on | PULMONOLOGY 1100 | Juli Barrios, [facility] | PCP) | | | | KATHRIN COREA | Applications Support Specialist | | | | | [place], [place] | | | | | | [address] | | | | | | [phone] | | | +--------+ + + + [...] of this encounter Progress Notes Juli Pendleton, Sound Designer - 09/18/2019 1:00 PM PDTReceived records fr [...] | | | | | | [place] [address] | | | | | | [phone] | | | | | | | | +--------+ + + + + documented as of this encounter Visit Diagnoses Not on filedocumented in this encounter"
--- OUTSIDE RECORDS SUMMARY | ~2019-12-10 | XMS | Encounter Summary ---
Demographics + + + | Address | [address] | | | [place] [address] | + + + | Home Phone | | + + + | Preferred Language | Unknown | + + + | Marital Status | | + + + | Worship Affiliation | Unknown | + + + | Race | Unknown | + + + | Ethnic Group | Unknown | + + + Author + + + | Author | [facility] | | | and Sumanthana | + + + | Organization | [facility] | | | and [place] [...] Team Providers + +------+ + | Care Tire Sorter Name | Role | Phone | + +------+ + | Leeanne Denny | PCP | | + +------+ + Encounter Details +--------+ + + + + | Date | Type | Department | Care Team | Description | +--------+ + + + + | 09/15/ | Orders Only | [facility] | Robyn Sultana, | Moderate persistent | | 2019 | | [address] | Revenue Stamp Cutter | asthma without | | | | [place] | | complication; | | | | [address] | | Seasonal allergic | | | | [phone] | | rhinitis due to | | | | | | pollen | +--------+ + + + + Social [...] + + documented as of this encounter Plan of Treatment +--------+ + + + + | Date | Type | Specialty | Care Team | Description | +--------+ + + + + | 12/22/ | Virtual | Pulmonology | Ramandeep Betts, | | | 2019 | Office | | [address] | | | | Visit | | [address] [place], | | | | | | [place] [address] | | | | | | [phone] | | | | | | | | +--------+ + + + + documented as of this encounter Procedures + +--------+ + + + | Procedure Name | Priori | Date/Time | Associated Diagnosis | Comments | | | ty | | | | + +--------+ + + + | ALLERGEN PANEL, | Routin | 09/16/2019 | Moderate | Results for this | | [facility] | e | 10:48 AM | persistent [...] section. | + +--------+ + + + documented in this encounter Results Allergen Panel, [facility] (09/16/2019 10:48 AM PDT) + + [...] 0 kU/L | REFERENCE | | | Mohawk IgE | | | LAB | | [...] + + + + + | Trotter [place] | 0.41 (A) | Class I kU/L | REFERENCE | | | IgE | | | LAB | | | | | | [facility] | | | | | | LABORATORY | | + + + + + + | [place] | 0.75 (A) | Class II kU/L [...] + + + + + + | [place] Tree | 0.18 (A) | Class 0/I kU/L | REFERENCE | | | IgE | | | LAB | | | | | | [facility] | | | | | | LABORATORY | | + + + + + + | [place] Tree | 0.47 (A) | Class I [...] + + + + + + | Faroese | <0.10 | Class 0 kU/L | REFERENCE | | | Thistle IgE | | | LAB | | | | | | [facility] | | | | | | LABORATORY | | + + + + + + | Allergen | 0.13 (A)Comment: Testing | Class 0/I kU/L | REFERENCE | | | Ragweed, | performed by [facility], | | LAB | | | Western | [address], | | [facility] | | | | [facility] [address] | | LABORATORY | | + + + + + + + + | Specimen | + + | Blood | + + + + + + + | Performing | Address | City/State/Zipcode | Phone Number | | Organization | | | | + + + + + | REFERENCE LAB | [address] | [place] | [phone] | | [facility] | Bl[address] | [address] | | | LABORATORY | | | | + + + + + | REFERENCE LAB | [address] | [place] | | | [facility] | Blvd. | [address] | | | LABORATORY | | | [...] | | | Absolute | performed at [facility];[address] | [address] | LAB | | | [facility] | | [facility] | | | | [address];[place] [address] | | LABORATORY | | + + + + + + + + | Specimen | + + | Blood | + + + + + + + | Performing | Address | City/State/Zipcode | Phone Number | | Organization | | | | + + + + + | REFERENCE LAB | [address] [place] [address] | [place], [place] | [phone] | | [facility] | Bl[address]. | [address] | | | LABORATORY | | | | + + + + + | REFERENCE LAB | [address] [place] [address] | [place] | | | [facility] | Blvd. | [address] | | | LABORATORY | | | | + + + + + documented in this encounter Visit Diagnoses + + | Diagnosis | + + | Moderate persistent asthma without complication Unspecified asthma | + + | Seasonal allergic rhinitis due to pollen | + + documented in this encounter"
--- OUTSIDE RECORDS SUMMARY | ~2019-12-10 | XMS | Encounter Summary ---
Demographics + + + | Address | [address] | | | [place] [address] | + + + | Home Phone | | + + + | Preferred Language | Unknown | + + + | Marital Status | | + + + | Anglican Affiliation | Unknown | + + + | Race | Unknown | + + + | Ethnic Group | Unknown | + + + Author + + + | Author | [facility] | | | and Sumanthana | + + + | Organization | [facility] | | | and [place] [...] Team Providers + +------+ + | Care Sports Nutritionist Name | Role | Phone | + +------+ + | Leeanne Denny | PCP | | + +------+ + Reason for Visit +--------+ + | Reason | Comments | +--------+ + | Other | appointment screening | +--------+ + Encounter Details +--------+ + + + + | Date | Type | Department | Care Team | Description | +--------+ + + + + | 11/23/ | Telephone | [facility] | Ramandeep Betts, | Other (appointment | | 2019 | | PULMONOLOGY 1100 | COLLECTIVE BARGAINING SPECIALIST [address] | screening) | | | | [address] COREA | DR COREA [place], | | | | | [place], [place] | [place] [address] | | | | | [address] | [phone] | | | | | [phone] | | | +--------+ + + + [...] [place], | | | | | | [place] [address] | | | | | | [phone] | | | | | | | | +--------+ + + + + documented as of this encounter Visit Diagnoses Not on filedocumented in this encounter"
--- OUTSIDE RECORDS SUMMARY | ~2019-12-10 | XMS | Encounter Summary ---
Demographics + + + | Address | [address] | | | [place] [address] | + + + | Home Phone | | + + + | Preferred Language | Unknown | + + + | Marital Status | | + + + | Alevism Affiliation | Unknown | + + + | Race | Unknown | + + + | Ethnic Group | Unknown | + + + Author + + + | Author | [facility] | | | and [place]anthana | + + + | Organization | [facility] | | | and [place] [...] Team Providers + +------+ + | Care Radio Engineering Teacher Name | Role | Phone | + +------+ + | Leeanne Denny | PCP | | + +------+ + Reason for Visit +--------+ + | Reason | Comments | +--------+ + | Other | Asthma control test | +--------+ + Encounter Details +--------+ + + + + | Date | Type | Department | Care Team | Description | +--------+ + + + + | 12/01/ | Documentati | [facility] | Svitlana-Ron, | Other (Asthma | | 2019 | on | PULMONOLOGY 1100 | [facility] | control test) | | | | KATHRIN COREA | Market Analyst | | | | | [place], [place] | | | | | | [address] | | | | | | [phone] | | | +--------+ + + + [...] of this encounter Progress Notes Juli Pendleton, Carburetor Expert - 12/02/2019 8:16 AM PDTReceived Asthma con trol test. Labeled and scanned into pt chart. PT scored 8 documented in this encounter Plan of Treatment +--------+ + + + + | Date | Type | Specialty | Care Team | Description | +--------+ + + + + | 12/22/ | Virtual | Pulmonology | Ramandeep Betts, | | 2019 | Office | | [place] | | | | Visit | | [address] [place], | | | | | | [place] [address] | | | | | | [phone] | | | | | | | | +--------+ + + + + documented as of this encounter Visit Diagnoses Not on filedocumented in this encounter"
--- OUTSIDE RECORDS SUMMARY | ~2019-12-10 | XMS | Encounter Summary ---
Demographics + + + | Address | [address] | | | [place] [address] | + + + | Home Phone | | + + + | Preferred Language | Unknown | + + + | Marital Status | | + + + | Adventism Affiliation | Unknown | + + + | Race | Unknown | + + + | Ethnic Group | Unknown | + + + Author + + + | Author | [facility] | | | and Sumanthana | + + + | Organization | [facility] | | | and [place] [...] Team Providers + +------+ + | Care Batch Plant Operator Name | Role | Phone | [...] | | | (acute) | [place], | [place], [place] | | | | | exacerbation | [place] | [address] | | | | | | [address] | Phone: | | | | | | Phone: | [phone] | | | | | | [phone] | Fax: | | | | | | Fax: | [phone] | | | | | | [phone] | | + +--------+ + + + + Encounter Details +--------+---------+ + + + | Date | Type | Department | Care Team | Description | +--------+---------+ + + + | 09/15/ | Office | [facility] | Ramandeep Betts, | Moderate persistent | | 2020 | Visit | PULMONOLOGY 1100 | CRUDE OIL TREATER [address] | asthma without | | | | [address] COREA | DR LEI [place], | complication | | | | [place], [place] | [place] [address] | (Primary Dx); | | | | [address] | [phone] | Seasonal allergic | | | | [phone] | | rhinitis due to | | [...] unintentional weight loss. Social Hx: Originally from [place], lives in [place] for last 1 year. 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 She i s a current smoker, [...] dog indoors. Recently bought a group of [employer] ks she is taking care of. She [...] eosinophils 09-04-2018: 400 Imaging: CXR 06-22-19 [facility]: Impression: No acute cardiopulmonary abnormality - Dr Rush Hiadlgo CXR 09-10-2018: FINDINGS: No consolidation or interstitial infiltrate is identified. Costophrenic angles ar e well defined. Cardiomediastinal contours are stable. IMPRESSION: 1. No acute cardiopulmonary disease. Pulmonary Function Test: 09-10-19 at [facility] FEV1: 1.19/36 2.06/63 FVC: 2.58/66 4.04/103 [...] truly having an emergency with breathing, other jacobs, she should use up to 2 puffs [...] 30 tablet; Refill: 11 - Allergen Panel, [facility]; Future - albuterol 90 mcg/puff inhaler; Inhale [...] tablet; Ref ill: 11 - Allergen Panel, [facility]; Future 3. Gastroesophageal reflux disease, esophagitis presence [...] if questions or concerns arise. MARC Skaggs [facility] PULMONOLOGY [address] [place] [address] Dept: [phone] FAX: [phone] I have discussed my findings and plan with Dr Fontenot today. We are in agreement with the [facility]'s plan of care as detailed above. [...] | | 2019 | Office | | CRUDE OIL TREATER [address] | | | | Visit | | DR [place], | | | | | | [place] [address] | | | | | | [phone] | | | | | | | [...] | | | Absolute | performed at [facility];[address] | [address] | LAB | | | | [place] | | [facility] | | | | [address];[place] [address] | | LABORATORY | | + + + + + + + + | Specimen | + + | Blood | + + + + + + + | Performing | Address | City/State/Zipcode | Phone Number | | Organization | | | | + + + + + | REFERENCE LAB | [address] | [place] | [phone] | | [facility] | Bl[address] | [address] | | | LABORATORY | | | | + + + + + | REFERENCE LAB | [address] | [place] | | | [facility] | Blvd[address] | [address] | | | LABORATORY | | | | + + + + + Allergen Panel, [facility] (09/16/2019 10:48 AM PDT) + + [...] 0 kU/L | REFERENCE | | | Congolese IgE | | | LAB | | [...] + + + + + | Trotter [place] | 0.41 (A) | Class I kU/L | REFERENCE | | | IgE | | | LAB | | | | | | [facility] | | | | | | LABORATORY | | + + + + + + | [place] | 0.75 (A) | Class II kU/L [...] + + + + + + | [place] Tree | 0.18 (A) | Class 0/I kU/L | REFERENCE | | | IgE | | | LAB | | | | | | [facility] | | | | | | LABORATORY | | + + + + + + | [place] Tree | 0.47 (A) | Class I [...] + + + + + + | Kosovan | <0.10 | Class 0 kU/L | REFERENCE | | | Thistle IgE | | | LAB | | | | | | [facility] | | | | | | LABORATORY | | + + + + + + | Allergen | 0.13 (A)Comment: Testing | Class 0/I kU/L | REFERENCE | | | Ragweed, | performed by [facility], | | LAB | | | [facility] | [address] [facility], | | [facility] | | | | [facility] [address] | | LABORATORY | | + + + + + + + + | Specimen | + + | Blood | + + + + + + + | Performing | Address | City/State/Zipcode | Phone Number | | Organization | | | | + + + + + | REFERENCE LAB | [address] [place] [address] | [place], [place] | [phone] | | [facility] | Blvd. | [address] | | | LABORATORY | | | | + + + + + | REFERENCE LAB | [address] [place] [address] | [place], [place] | | | [facility] | Blvd. | [address] | | | LABORATORY | | | [...]
--- OUTSIDE RECORDS SUMMARY | ~2019-12-10 | XMS | Encounter Summary ---
Demographics + + + | Address | [address] | | | [place] [address] | + + + | Home Phone | | + + + | Preferred Language | Unknown | + + + | Marital Status | | + + + | Muslim Affiliation | Unknown | + + + | Race | Unknown | + + + | Ethnic Group | Unknown | + + + Author + + + | Author | [facility] | | | and [place]anth[place] | + + + | Organization | [facility] | [...] Team Providers + +------+ + | Care Sling Operator Name | Role | Phone | [...] + + | 11/23/ | Telephone | [facility] | Ramandeep Betts, | Other (appointment | | 2019 | | PULMONOLOGY 1100 | HEDDLE MACHINE OPERATOR [address] | screening) | | | | [address] COREA | DR COREA [place], | | | | | [place], [place] | [place] [address] | | | | | [address] | [phone] | | | | | [phone] | | | +--------+ + + + [...] | 12/22/ | Virtual | Pulmonology | aRmandeep Betts, | | | 2019 | Office | | MARC PINON | | | | Visit | | DR [place], | | | | | | [place] [address] | | | | | | [phone] | | | | | | | | +--------+ + + + + documented as of this encounter Visit Diagnoses Not on filedocumented in this encounter"
--- OUTSIDE RECORDS SUMMARY | ~2019-12-10 | XMS | Encounter Summary ---
Demographics + + + | Address | [address] | | | [place] [address] | + + + | Home Phone | | + + + | Preferred Language | Unknown | + + + | Marital Status | | + + + | Rastafari Affiliation | Unknown | + + + | Race | Unknown | + + + | Ethnic Group | Unknown | + + + Author + + + | Author | [facility] | | | and [place]anthana | + + + | Organization | [facility] | | | and [place] | [...] Team Providers + +------+ + | Care Integrated Program Teacher Name | Role | Phone | [...] + + | 11/24/ | Office | [facility] | Ramandeep Betts, | Severe persistent | | 2020 | Visit | PULMONOLOGY 1100 | INTEGRATION AIDE [address] | asthma with acute | | | | [address] DR COREA | DR COREA [place], | exacerbation | | | | [place], [place] | [place] [address] | (Primary Dx); | | | | [address] | [phone] | Seasonal allergic | | | | [phone] | | rhinitis due to | | [...] s after COVID19. Already sent referral to [place] [facility]. Other relevant medications: famotidine 20mg bid, zyrtec nightly, singulair nightly, flonase BID, lisinopril HCTZ. Prednisone 60mg taper to start again Sunday. Social Hx: Originally from [place], lives in [place] for last 1 year. 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 She i s a current smoker, [...] dog indoors. Recently bought a group of [employer] ks she is taking care of. She [...] Grass IgE Class 0 kU/L <0.10 Cockroach, Belarusian IgE Class 0 kU/L <0.10 ALLERGEN ALTERNARIA ALTERNATA IGE Class 0 kU/L <0.10 Trotter [place] IgE Class I kU/L 0.41 (A) [place]go IgE Class II kU/L 0.75 (A) SILVER BIRCH, IGE Class I kU/L 0.34 (A) [place] Tree IgE Class 0/I kU/L 0.18 (A) [place] Tree IgE Class I kU/L 0.47 (A) Pigweed Grass IgE Class 0 kU/L <0.10 Angolan Thistle IgE Class 0 kU/L <0.10 Allergen Ragweed, Western Class 0/I kU/L 0.13 (A) Absolute eosinophils 09-04-2018: 400 Imaging: CXR 06-22-19 at [facility]: Impression: No acute cardiopulmonary abnormality - Dr Rush Hidalgo CXR 09-10-2018: FINDINGS: No consolidation or interstitial infiltrate is identified. Costophrenic angles ar e well defined. Cardiomediastinal contours are stable. IMPRESSION: 1. No acute cardiopulmonary disease. Pulmonary Function Test: 09-10-19 at [facility] FEV1: 1.19/36 2.06/63 FVC: 2.58/66 [...] will order this uvaldo kwong for the [facility] in [place]. Locally, our sleep centers are not performing te sting due to COVID19. I am not sure if [place] are open and testing right now or no t. Referral to sleep med in [place], [place] was placed last visit, she has [...] questions or concerns a rise. MARC Skaggs [facility] PULMONOLOGY [address] [place] [address] Dept: [phone] FAX: [phone] I have discussed my findings and plan [...] [place], | | | | | | [place] [address] | | | | | | [phone] | | | | | | | [...]
--- OUTSIDE RECORDS SUMMARY | ~2019-12-10 | XMS | Encounter Summary ---
Demographics + + + | Address | [address] | | | [place] [address] | + + + | Home Phone | | + + + | Preferred Language | Unknown | + + + | Marital Status | | + + + | Anabaptist Affiliation | Unknown | + + + | Race | Unknown | + + + | Ethnic Group | Unknown | + + + Author + + + | Author | [facility] | | | and [place] | + + + | Organization | [facility] | | | and [...] Team Providers + +------+ + | Care Post Closer Name | Role | Phone | + +------+ + | Leeanne Denny | PCP | | + +------+ + Reason for Visit +--------+ + | Reason | Comments | +--------+ + | Other | faxed jason papers | +--------+ + Encounter Details +--------+ + + + + | Date | Type | Department | Care Team | Description | +--------+ + + + + | 12/02/ | Documentati | [facility] | Keerthi, | Other (faxed fasenra | | 2019 | on | PULMONOLOGY 1100 | Juli Barrios, [facility] | papers) | | | | KATHRIN COREA | Registered Medical Transcriptionist | | | | | [place], [place] | | | | | | [address] | | | | | | [phone] | | | +--------+ + + + [...] of this encounter Progress Notes Juli Pendleton, Third Loader - 12/03/2019 11:54 AM PDTfaxed jason paper s and chart notes to . Confirmation recieved documented in this encounter Plan of Treatment +--------+ + + + + | Date | Type | Specialty | Care Team | Description | +--------+ + + + + | 12/22/ | Virtual | Pulmonology | Ramandeep Betts, | | 2019 | Office | | ORACLE WMS CONSULTANT [address] | | | | Visit | | [address] [place], | | | | | | [place] [address] | | | | | | [phone] | | | | | | | | +--------+ + + + + documented as of this encounter Visit Diagnoses Not on filedocumented in this encounter"
--- OUTSIDE RECORDS SUMMARY | ~2019-12-10 | XMS | Encounter Summary ---
Demographics + + + | Address | [address] | | | [place] [address] | + + + | Home Phone | | + + + | Preferred Language | Unknown | + + + | Marital Status | | + + + | Anglican Affiliation | Unknown | + + + | Race | Unknown | + + + | Ethnic Group | Unknown | + + + Author + + + | Author | [facility] | | | and [place] | + + + | Organization | [facility] | | | and [place] | [...] Team Providers + +------+ + | Care Supervisor Liquefaction Name | Role | Phone | + [...] + + | 12/01/ | Documentati | [facility] | Svitlana-Ron, | Other (Asthma | | 2019 | on | PULMONOLOGY 1100 | [facility] | control test) | | | | KATHRIN COREA | Extrusion Die Repair Manager | | | | | [place], [place] | | | | | | [address] | | | | | | [phone] | | | +--------+ + + + [...] of this encounter Progress Notes Juli Pendleton, Waiter/Waitress Formal - 12/02/2019 8:16 AM PDTReceived Asthma con [...] | | | | | | [place] [address] | | | | | | [phone] | | | | | | | | +--------+ + + + + documented as of this encounter Visit Diagnoses Not on filedocumented in this encounter"
--- OUTSIDE RECORDS SUMMARY | ~2019-12-10 | XMS | Encounter Summary ---
Demographics + + + | Address | [address] | | | [place] [address] | + + + | Home Phone | | + + + | Preferred Language | Unknown | + + + | Marital Status | | + + + | Baptism Affiliation | Unknown | + + + | Race | Unknown | + + + | Ethnic Group | Unknown | + + + Author + + + | Author | [facility] | | | and [place] | + + + | Organization | [facility] | | | and [place] | [...] Team Providers + +------+ + | Care Agricultural Engineering Technologist Name | Role | Phone | + [...] 2019 | | [address] | Zoo Caretaker | asthma without | | | | [place] | | complication; | | | | [address] | | Seasonal allergic | | | | [phone] | | rhinitis due to | | [...] | | | | | | [place] [address] | | | | | | [phone] | | | | | | | [...] Moderate | Results for this | | [facility] | e | 10:48 AM | [...] documented in this encounter Results Allergen Panel, [facility] (09/16/2019 10:48 AM PDT) + + [...] 0 kU/L | REFERENCE | | | Urdu IgE | | | LAB | | [...] + + + + + | [facility] | 0.41 (A) | Class I kU/L | REFERENCE | | | IgE | | | LAB | | | | | | [facility] | | | | | | LABORATORY | | + + + + + + | [place] | 0.75 (A) | Class II kU/L [...] + + + + + + | [place] | 0.18 (A) | Class 0/I kU/L | REFERENCE | | | IgE | | | LAB | | | | | | [facility] | | | | | | LABORATORY | | + + + + + + | [place] | 0.47 (A) | Class I [...] + + + + + + | [place] | <0.10 | Class 0 kU/L | REFERENCE | | | Thistle IgE | | | LAB | | | | | | [facility] | | | | | | LABORATORY | | + + + + + + | Allergen | 0.13 (A)Comment: Testing | Class 0/I kU/L | REFERENCE | | | Ragweed, | performed by [facility], | | LAB | | | Western | [address], | | [facility] | | | | [facility] [address] | | LABORATORY | | + + + + + + + + | Specimen | + + | Blood | + + + + + + + | Performing | Address | City/State/Zipcode | Phone Number | | Organization | | | | + + + + + | REFERENCE LAB | [address] | [place] | [phone] | | [facility] | [address] | [address] | | | LABORATORY | | | | + + + + + | REFERENCE LAB | [address] | [place] | | | [facility] | Blvd. | [address] | | | LABORATORY | | | [...] | | | Absolute | performed at [facility];[address] | [address] | LAB | | | | [address] [facility] [address] | | [facility] | | | | Bl[address];[place] [address] | | LABORATORY | | + + + + + + + + | Specimen | + + | Blood | + + + + + + + | Performing | Address | City/State/Zipcode | Phone Number | | Organization | | | | + + + + + | REFERENCE LAB | [address] [place] [address] | [place], [place] | [phone] | | [facility] | Blvd. | [address] | | | LABORATORY | | | | + + + + + | REFERENCE LAB | [address] [place] [address] | [place] | | | [facility] | Blvd. | [address] | | | LABORATORY | | | | + + + + + documented in this encounter Visit Diagnoses + + | Diagnosis | + + | Moderate persistent asthma without complication Unspecified asthma | + + | Seasonal allergic rhinitis due to pollen | + + documented in this encounter"
--- OUTSIDE RECORDS SUMMARY | ~2019-12-10 | XMS | Clinical Summary ---
Demographics + + + | Address | [address] | | | [place] [address] | + + + | Home Phone | | + + + | Preferred Language | Unknown | + + + | Marital Status | | + + + | Orthodox Affiliation | Unknown | + + + | Race | Unknown | + + + | Ethnic Group | Unknown | + + + Author + + + | Author | [facility] | | | and [place] | + + + | Organization | [facility] | | | and [place] | [...] Team Providers + +------+ + | Care Psychology Teacher Name | Role | Phone | [...] | | 2020 | Office | | CLINICAL INFORMATICS SPECIALIST | asthma with acute | | | [...] | papers) | | | | | Ship Washer | | +--------+ + + + + | 12/01/ | Documentati | Pulmonology | Ke[place]thi, | Other (chart notes | | 2019 | on | | [facility] | from PCP) | | | | | Ship Washer | | +--------+ + + + + | 12/01/ | Documentati | Pulmonology | [place], | Other (Asthma | | 2019 | on | | [facility] | control test) | | | | | Ship Washer | | +--------+ + + + + | 11/24/ | Office | Pulmonology | Ramandeep Betts, | Severe persistent | | 2019 | Visit | | CLINICAL INFORMATICS SPECIALIST | asthma with acute | | | [...] Other (appointment | 2019 | | | CLINICAL INFORMATICS SPECIALIST | screening) | +--------+ + + + + | 11/17/ | Virtual | Pulmonology | Ramandeep Betts, | Severe persistent | 2019 | Office | | CLINICAL INFORMATICS SPECIALIST | asthma with acute | | | [...] | brianda) | | | | | Ship Washer | | +--------+ + + + + | 11/03/ | Virtual | Pulmonology | Ramandeep Betts, | Severe persistent | | 2019 | Office | | CLINICAL INFORMATICS SPECIALIST | asthma with acute | | | [...] | Juli Barrios, Medical | records from [place] | | | | | Ship Washer | sleep cntr) | +--------+ + + + + | 10/13/ | Virtual | Pulmonology | Ramandeep Betts, | Severe persistent | | 2020 | Office | | CLINICAL INFORMATICS SPECIALIST | asthma without | | | Visit [...] | PCP) | | | | | Ship Washer | | +--------+ + + + + | 09/15/ | Office | Pulmonology | Ramandeep Betts, | Moderate persistent | 2019 | Visit | | CLINICAL INFORMATICS SPECIALIST | asthma without | | | | [...] persistent | | 2019 | | | Msws | asthma without | | | | [...] | | | | | | [place] [address] | | | | | | [phone] | | | | | | | [...] Moderate | Results for this | | [facility] | e | 10:48 AM | [...] from Last 3 Months Results Allergen Panel, [facility] (09/16/2019 10:48 AM PDT) + [...] 0 kU/L | REFERENCE | | | Iranian IgE | | | LAB | | [...] + + + + + + | [place] | 0.75 (A) | Class II kU/L [...] + + + + + + | [place] | 0.18 (A) | Class 0/I kU/L | REFERENCE | | | IgE | | | LAB | | | | | | [facility] | | | | | | LABORATORY | | + + + + + + | [place] | 0.47 (A) | Class I [...] + + + + + + | Czech | <0.10 | Class 0 kU/L | REFERENCE | | | Thistle IgE | | | LAB | | | | | | [facility] | | | | | | LABORATORY | | + + + + + + | Allergen | 0.13 (A)Comment: Testing | Class 0/I kU/L | REFERENCE | | | Ragweed, | performed by [facility], | | LAB | | | Western | [address], | | [facility] | | | | [facility] [address] | | LABORATORY | | + + + + + + + + | Specimen | + + | Blood | + + + + + + + | Performing | Address | City/State/Zipcode | Phone Number | | Organization | | | | + + + + + | REFERENCE LAB | [address] | [place] | [phone] | | [facility] | Blvd. | [address] | | | LABORATORY | | | | + + + + + | REFERENCE LAB | [address] | [place] | | | [facility] | Blvd. | [address] | | | LABORATORY | | | [...] | | | Absolute | performed at [facility];[address] | K[address]uL | LAB | | | | [place] | | [facility] | | | | Blvd;[place] [address] | | LABORATORY | | + + + + + + + + | Specimen | + + | Blood | + + + + + + + | Performing | Address | City/State/Zipcode | Phone Number | | Organization | | | | + + + + + | REFERENCE LAB | [address] | [place] | [phone] | | [facility] | Blvd. | [address] | | | LABORATORY | | | | + + + + + | REFERENCE LAB | [address] | [place] | | | [facility] | vd. | [address] | | | LABORATORY | | | [...] | [employer] | [employer] | [id number] | | [phone] | | Medica | [...] | | al/Fam | | 1986 | [phone] | [place] [address] | | | damion | | | 8 (Home) | | | | | | | [phone] | | | | | | | 1 (Work) | | + +--------+ +--------+ + + Advance Directives + + + + + | Type | Date Recorded | Patient | Explanation | | | | Tobacco Sample Puller | | + + + + + | Power of | | | | | Analyst Market Intelligence | | | | + + + + + | Advance | | | | | Directive | | | | + + + + +
--- OUTSIDE RECORDS SUMMARY | ~2019-12-10 | XMS | Encounter Summary ---
Demographics + + + | Address | [address] | | | [place] [address] | + + + | Home Phone | | + + + | Preferred Language | Unknown | + + + | Marital Status | | + + + | Yarsani Affiliation | Unknown | + + + | Race | Unknown | + + + | Ethnic Group | Unknown | + + + Author + + + | Author | [facility] | | | and [place] | + + + | Organization | [facility] | | | and [place] [...] Team Providers + +------+ + | Care Industrial Design Intern Name | Role | Phone | + +------+ + | Leeanne Denny | PCP | | + +------+ + Reason for Visit + + + | Reason | Comments | + + + | Follow-up | | + + + Encounter Details +--------+ + + + + | Date | Type | Department | Care Team | Description | +--------+ + + + + | 12/08/ | Virtual | [facility] | Ramandeep Betts, | Severe persistent | | 2019 | Office | PULMONOLOGY 1100 | METAL FURNITURE ASSEMBLY SUPERVISOR [address] | asthma with acute | | | Visit | KATHRIN COREA | DR [place], | exacerbation | | | | [place], [place] | [place] [address] | (Primary Dx); | | | | [address] | [phone] | Seasonal allergic | | | | [phone] | | rhinitis due to | | [...] encounter Progress Notes Ramandeep Betts ARNP - 12/09/2019 10:00 AM PDTFormatting of this note might be different fr om the original. This exam was initially conducted via a secure 256-bit AES encrypted bidirectional video se ssion. Service was provided [id number] with the patient via interactive videoconferencing Video start time 1000 Video end time 1020 Total time (in minutes) including non abcy-de-kdcy time (reviewing records, documentation, etc..) 40min You have chosen to receive care through the use of telemedicine. Telemedicine enables [facility] care providers at different locations to provide [...] been answered? "Yes" Participant is currently at home Do you consent to the use of telemedicine in your medical care today? Yes. Last question, I need to confirm where are you physically located right now? [place] Answer: Patient confirms they are located in a state where Ramandeep Vasquez ARNP am lice nsesoco. Subjective: Patient ID: Kyle Martinez is a [...] in office today. ACT score today: 8 Interval HPI 12/09/19: Kyle Martinez is a 34 y.o. female presenting today for follow up vis it via virtual visit. She has chosen this method of follow up to limit her potential exposur e to COVID19. She reports she has continued to be dyspneic on minimal activity, wheezing thr oughout the day and night, and having dry cough with occasional paroxysms leading to gagging . She has started back on prednisone 60mg and is now down to 40mg on taper, no change in sym ptoms from 60mg to 40mg thus far. Continues to find relief of her sinonasal symptoms with as telin. She reports continued good control of GERD symptoms on famotidine BID. We have submitted paperwork for Fasenra injections. We await insurance to answer with dawson alvarez on coverage for this treatment. Being that she has eosinophilia, and she is uncontrolled despite maximum inhaler therapy, Q 4 hour nebulizations, and the need for prednisone to man age symptoms for last few months, she should qualify. The patient reports the following: DYSPNEA: on minimal exertion. COUGH: severe with paroxysms of cough leading to gagging at times. ACUTE EXACERBATION: July, prednisone taper with PCP, 08-29-19 prednisone taper PCP, 11-04-19 extended prednisone taper x 3 weeks, 11-28-19 prednisone taper (currently on this). EXPOSURES: 1 ppd intermittently x 15 years. Recently quit smoking 4 weeks ago. EXERCISE: no formal exercise lately. [...] s after COVID19. Already sent referral to [place] [facility]. Other relevant medications: famotidine 20mg bid, zyrtec nightly, singulair nightly, flonase BID, astelin nasal spray BID, lisinopril HCTZ. Prednisone 60mg taper at 40mg for next 6 day sIvette Varela: Originally from [place], lives in [place] for last 1 year. 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 She i s a current smoker, [...] dog indoors. Recently bought a group of chic ks she is taking care of. She denies marijuana use or other substance use. Denies any pulmonary related family history. No family history on file. Review of [...] Does not bruise/bleed easily. Objective: Physical Exam No PE as this was a virtual visit. No Known Allergies There were no [...] a day, Disp: 30 mL, Rfl: 11 benralizumab (FASENRA) 30 mg/mL injection (syringe), Inject subcutaneously Q 4 weeks x 3 doses then Q 8 weeks therafter., Disp: 1 mL, Rfl: 11 budesonide (PULMICORT) 0.5 mg/2 [...] Grass IgE Class 0 kU/L <0.10 Cockroach, Thai IgE Class 0 kU/L <0.10 ALLERGEN ALTERNARIA ALTERNATA IGE Class 0 kU/L <0.10 [place]ter [place] IgE Class I kU/L 0.41 (A) [place] IgE Class II kU/L 0.75 (A) SILVER BIRCH, IGE Class I kU/L 0.34 (A) [place] Tree IgE Class 0/I kU/L 0.18 (A) [place] IgE Class I kU/L 0.47 (A) Pigweed Grass IgE Class 0 kU/L <0.10 [place] Thistle IgE Class 0 kU/L <0.10 Allergen Ragweed, Western Class 0/I kU/L 0.13 (A) Absolute eosinophils 09-04-2018: 400 Imaging: CXR 06-22-[address] [facility]: Impression: No acute cardiopulmonary abnormality - Dr Rush Hidalgo CXR 09-10-2018: FINDINGS: No consolidation or interstitial infiltrate is identified. Costophrenic angles ar e well defined. Cardiomediastinal contours are stable. IMPRESSION: 1. No acute cardiopulmonary disease. Pulmonary Function Test: 09-10-19 at [facility] FEV1: 1.19/36 2.06/63 FVC: 2.58/66 [...] is normal. Of note, she stopped smoking 4 weeks ago. We have completed [facility] paperwork and submitted notes from this office and PCP for record of prednisone use and her course of illness as evidence for her need of next step treatment . She has started the Prednisone 60mg taper on 11-28-19 previously ordered, she is now on 40mg for next 6 days. I will extend this today as she reports she has remained dyspneic and cont inues to wheeze throughout the day and night. I will attempt to reduce dose to 20mg a few da ys prior to our next appointment to see if she tolerates this well enough to maintain at a l owered dose. We will use budesonide BID in addition to her Advair if asthma symptoms flare a t 20mg prednisone, to see if this helps keep her systemic dose lower. She has side effect of poor sleep and very labile mood on oral prednisone, causing her to clash with family as wel l. We will work to get her daily dose as low as tolerated. She will fill the budesonide in a week or so at her pharmacy to be used when she reduces dose. She notes her albuterol HFA was changed to a new type of inhaler that does not seem as effe ctive. I have suggested she speak to her pharmacist about this inhaler variation and ask if she can return to her ventolin since this seemed to help better. - albuterol 90 mcg/puff inhaler; Inhale 2 puffs into the lungs every 4 hours as needed for Wheezing or Shortness of Breath (10-15min before strenuous activity). Dispense: 1 Inhaler; Refill: 11 - predniSONE (DELTASONE) 20 mg tablet; Take 40mg x 5 days then 20mg thereafter. Dispense: 40 tablet; Refill: 0 2. Seasonal allergic rhinitis [...] at night. 4. Tobacco use Quit smoking 4 weeks ago. I have congratulated her today [...] will order this toda y for the [facility] in [place]. Locally, our sleep centers are not performing te sting due to COVID19. I am not sure if [place] centers are open and testing right now or no t. Referral to sleep med in [place], [place] was placed last visit, she has [...] questions or concerns a rise. MARC Skaggs [facility]ULMON[facility] [address] [place] [address] Dept: [phone] FAX: [phone] I have discussed my findings and plan with Dr Fontenot today. We are in agreement with the lui boyer's plan of care as detailed above. This note was dictated using voice recognition software. Please contact me if there are an y questions regarding its content. documented in this e ncounter Plan of Treatment +--------+ + + + + | Date | Type | Specialty | Care Team | Description | +--------+ + + + + | 12/22/ | Virtual | Pulmonology | BettsRamandeep Steve, | | | 2019 | Office | | METAL FURNITURE ASSEMBLY SUPERVISOR [address] | | | | Visit | | DR [place], | | | | | | [place] [address] | | | | | | [phone] | | | | | | | [...]
--- OUTSIDE RECORDS SUMMARY | ~2019-12-10 | XMS | Encounter Summary ---
Demographics + + + | Address | [address] | | | [place] [address] | + + + | Home Phone | | + + + | Preferred Language | Unknown | + + + | Marital Status | | + + + | Quaker Affiliation | Unknown | + + + | Race | Unknown | + + + | Ethnic Group | Unknown | + + + Author + + + | Author | [facility] | | | and [place] | + + + | Organization | [facility] | | | and [place] [...] Team Providers + +------+ + | Care Garment Parts Cutter Machine Name | Role | Phone | + [...] + + | 12/08/ | Virtual | [facility] | Ramandeep Betts, | Severe persistent | | 2019 | Office | PULMONOLOGY 1100 | PASTRY SUPERVISOR [address] | asthma with acute | | | Visit | KATHRIN COREA | [address] [place], | exacerbation | | | | [place], [place] | [place] [address] | (Primary Dx); | | | | [address] | [phone] | Seasonal allergic | | | | [phone] | | rhinitis due to | | [...] bidirectional video se ssion. Service was provided [id number]-lukm with the patient via interactive videoconferencing Video start time 1000 Video end time 1020 Total time (in minutes) including non ppfv-nj-luyf time (reviewing records, documentation, etc..) 40min You have chosen to receive care through the use of telemedicine. Telemedicine enables [facility] care providers at different locations to provide [...] s after COVID19. Already sent referral to [place] [facility]. Other relevant medications: famotidine 20mg bid, zyrtec nightly, singulair nightly, flonase BID, astelin nasal spray BID, lisinopril HCTZ. Prednisone 60mg taper at 40mg for next 6 day sIvette Varela: Originally from [place], lives in [place] for last 1 year. 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 She i s a current smoker, [...] Grass IgE Class 0 kU/L <0.10 Cockroach, Macedonian IgE Class 0 kU/L <0.10 ALLERGEN ALTERNARIA ALTERNATA IGE Class 0 kU/L <0.10 Trotter [place] IgE Class I kU/L 0.41 (A) [place] IgE Class II kU/L 0.75 (A) SILVER BIRCH, IGE Class I kU/L 0.34 (A) [place] Tree IgE Class 0/I kU/L 0.18 (A) [place] IgE Class I kU/L 0.47 (A) Pigweed Grass IgE Class 0 kU/L <0.10 [place] Thistle IgE Class 0 kU/L <0.10 Allergen Ragweed, Western Class 0/I kU/L 0.13 (A) Absolute eosinophils 09-04-2018: 400 Imaging: CXR 06-22-19 at [facility]: Impression: No acute cardiopulmonary abnormality - Dr Rush Hidalgo CXR 09-10-2018: FINDINGS: No consolidation or interstitial infiltrate is identified. Costophrenic angles ar e well defined. Cardiomediastinal contours are stable. IMPRESSION: 1. No acute cardiopulmonary disease. Pulmonary Function Test: 09-10-19 at [facility] FEV1: 1.19/36 2.06/63 FVC: 2.58/66 4.04/103 [...] smoking 4 weeks ago. We have completed [facility] paperwork and submitted notes from [...] will order this toda y for the [facility] in [place]. Locally, our sleep centers are not performing te sting due to COVID19. I am not sure if [place]'s centers are open and testing right now or no t. Referral to sleep med in [place] was placed last visit, she has [...] questions or concerns a rise. MARC Skaggs [facility] PULMON[facility] [address] [place] [address] Dept: [phone] FAX: [phone] I have discussed my findings and plan [...] | | 2019 | Office | | PASTRY SUPERVISOR [address] | | | | Visit | | DR [place], | | | | | | [place] [address] | | | | | | [phone] | | | | | | | [...]
--- OUTSIDE RECORDS SUMMARY | ~2019-12-10 | XMS | Encounter Summary ---
Demographics + + + | Address | [address] | | | [place] [address] | + + + | Home Phone | | + + + | Preferred Language | Unknown | + + + | Marital Status | | + + + | Evangelical Affiliation | Unknown | + + + | Race | Unknown | + + + | Ethnic Group | Unknown | + + + Author + + + | Author | [facility] | | | and [place] | + + + | Organization | [facility] | | | and [place] [...] Team Providers + +------+ + | Care Finisher Machine Name | Role | Phone | + +------+ + | Leeanne Denny | PCP | | + +------+ + Reason for Visit +--------+ + | Reason | Comments | +--------+ + | Other | chart notes from PCP | +--------+ + Encounter Details +--------+ + + + + | Date | Type | Department | Care Team | Description | +--------+ + + + + | 12/01/ | Documentati | [facility] | Keerthi, | Other (chart notes | | 2019 | on | PULMONOLOGY 1100 | Juli Barrios [facility] | from PCP) | | | | KATHRIN COREA | Cast Associate | | | | | [place], [place] | | | | | | [address] | | | | | | [phone] | | | +--------+ + + + [...] of this encounter Progress Notes Juli Pendleton, Manager Commercial Sales - 12/02/2019 9:16 AM PDTReceived chart note s from PCP, regarding the prednisone history use in the last 12 mo. Labeled and scanned into pt chart. documented in this encounter Plan of Treatment +--------+ + + + + | Date | Type | Specialty | Care Team | Description | +--------+ + + + + | 12/22/ | Virtual | Pulmonology | Ramandeep Betts, | | | 2019 | Office | | CINDER CRUSHER OPERATOR [address] | | | | Visit | | [address] [place], | | | | | | [place] [address] | | | | | | [phone] | | | | | | | | +--------+ + + + + documented as of this encounter Visit Diagnoses Not on filedocumented in this encounter"
--- OUTSIDE RECORDS SUMMARY | ~2019-12-10 | XMS | Encounter Summary ---
Demographics + + + | Address | [address] | | | [place] [address] | + + + | Home Phone | | + + + | Preferred Language | Unknown | + + + | Marital Status | | + + + | Amish Affiliation | Unknown | + + + | Race | Unknown | + + + | Ethnic Group | Unknown | + + + Author + + + | Author | [facility] | | | and Sumanthana | + + + | Organization | [facility] [...] Team Providers + +------+ + | Care Landscaper Name | Role | Phone | + [...] | | | (acute) | [place], | [place], [place] | | | | | exacerbation | [place] | [address] | | | | | | [address] | Phone: | | | | | | Phone: | [phone] | | | | | | [phone] | Fax: | | | | | | Fax: | [phone] | | | | | | [phone] | | + +--------+ + + + + Encounter Details +--------+ + + + + | Date | Type | Department | Care Team | Description | +--------+ + + + + | 11/17/ | Virtual | [facility] | Ramandeep Betts, | Severe persistent | | 2019 | Office | PULMONOLOGY [address] | [address] | asthma with acute | | | Visit | KATHRIN COREA | DR [place], | exacerbation | | | | [place], [place] | [place] [address] | (Primary Dx); | | | | [address] | [phone] | Seasonal allergic | | | | [phone] | | rhinitis due to | | [...] bidirectional video se ssion. Service was provided [id number] with the patient via interactive videoconferencing Video start time 1020 Video end time 1042 Total time (in minutes) including non [id number] time (reviewing records, documentation, etc..) 30min You have chosen to receive care through the use of telemedicine. Telemedicine enables [facility] care providers at different locations to [...] where are you physically located right now? [place], [place] Answer: Patient confirms they are located in a state where Ramandeep Vasquez ARNP am lice nsed ([place]) Kyle reports she does not feel like [...] BID, lisinopril HCTZ. Social Hx: Originally from [place], lives in [place] for last 1 year. 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 She i s a current [...] dog indoors. Recently bought a group of [employer] ks she is taking care of. She [...] Grass IgE Class 0 kU/L <0.10 Cockroach, Croatian IgE Class 0 kU/L <0.10 ALLERGEN ALTERNARIA ALTERNATA IGE Class 0 kU/L <0.10 Trotter Marci IgE Class I kU/L 0.41 (A) Sabine IgE Class II kU/L 0.75 (A) SILVER BIRCH, IGE Class I kU/L 0.34 (A) Martha Tree IgE Class 0/I kU/L 0.18 (A) Rutland Tree IgE Class I kU/L 0.47 (A) Pigweed Grass IgE Class 0 kU/L <0.10 Syrian Thistle IgE Class 0 kU/L <0.10 Allergen Ragweed, Western Class 0/I kU/L 0.13 (A) Absolute eosinophils 09-04-2018: 400 Imaging: CX[facility] at [facility]: Impression: No acute cardiopulmonary abnormality - [...] ed her for sleep study locally in [place], however, she awaits call back from sleep [...] if questions or concerns arise. MARC Skaggs [facility] PULMONOLOGY [address] [place] [address] Dept: [phone] FAX: [phone] I have discussed my findings and plan [...] [place], | | | | | | [place] [address] | | | | | | [phone] | | | | | | | [...]
--- OUTSIDE RECORDS SUMMARY | ~2019-12-10 | XMS | Encounter Summary ---
Demographics + + + | Address | [address] | | | [place] [address] | + + + | Home Phone | | + + + | Preferred Language | Unknown | + + + | Marital Status | | + + + | Scientology Affiliation | Unknown | + + + | Race | Unknown | + + + | Ethnic Group | Unknown | + + + Author + + + | Author | [facility] | | | and Sumanthana | + + + | Organization | [facility] | | | and [place] [...] Team Providers + +------+ + | Care Day Spa Manager Name | Role | Phone | + +------+ + | Leeanne Denny | PCP | | + +------+ + Reason for Visit +--------+ + | Reason | Comments | +--------+ + | Other | request records from [place] [facility] | +--------+ + Encounter Details +--------+ + + + + | Date | Type | Department | Care Team | Description | +--------+ + + + + | 11/02/ | Documentati | [facility] | Keerthi, | Other (request | | 2020 | on | PULMONOLOGY 1100 | [facility] | [place] from [place] | | | | KATHRIN COREA | Oven Heater Helper | sleep cntr) | | | | [place], [place] | | | | | | [address] | | | | | | [phone] | | | +--------+ + + + [...] of this encounter Progress Notes Juli Pendleton, Certified Athletic Trainer - 11/03/2019 10:03 AM PDTCalled to [facility] for them to fax records or call me back . documented in this encounter Plan of Treatment +--------+ + + + + | Date | Type | Specialty | Care Team | Description | +--------+ + + + + | 12/22/ | Virtual | Pulmonology | Ramandeep Betts, | | | 2020 | Office | | SUPERVISOR CUSTOMER SERVICES [address] | | | | Visit | | DR [place], | | | | | | [place] [address] | | | | | | [phone] | | | | | | | | +--------+ + + + + documented as of this encounter Visit Diagnoses Not on filedocumented in this encounter"
--- OUTSIDE RECORDS SUMMARY | ~2019-12-10 | XMS | Encounter Summary ---
Demographics + + + | Address | [address] | | | [place] [address] | + + + | Home Phone | | + + + | Preferred Language | Unknown | + + + | Marital Status | | + + + | Mosque Affiliation | Unknown | + + + | Race | Unknown | + + + | Ethnic Group | Unknown | + + + Author + + + | Author | [facility] | | | and Sumanthana | + + + | Organization | [facility] | | | and [place] [...] Team Providers + +------+ + | Care Gold Burnisher Name | Role | Phone | + [...] | | Required | | disturbance | [address]SOLE CASER [address] | | | | | | | [address] | | | | | | | [place] | | | | | | | [place] | | | | | | | [address] | | | | | | | Phone: | | | | | | | [phone] | | | | | | | Fax: | | | | | | | [phone] | | +--------+ + + + + [...] | | | (acute) | Rizwan, | [facility] | | | | | exacerbation | [place] | [address] | | | | | | [address] | Phone: | | | | | | Phone: | [phone] | | | | | | [phone] | Fax: | | | | | | Fax: | [phone] | | | | | | [phone] | | + +--------+ + + + + Encounter Details +--------+ + + + + | Date | Type | Department | Care Team | Description | +--------+ + + + + | 10/13/ | Virtual | [facility] | Ramandeep Betts, | Severe persistent | | 2020 | Office | PULMONOLOGY [address] | OUTSOLE CASER [address] | asthma without | | | Visit | [address] | DR [place], | complication | | | | [facility] [place] | [place] [address] | (Primary Dx); | | | | [address] | [phone] | Seasonal allergic | | | | [phone] | | rhinitis due to | | [...] visit. She reports she has entered [place] for this visit to ensure we can [...] today is 11. Social Hx: Originally from [place], lives in [place] for last 1 year. 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 She i s a current smoker, [...] dog indoors. Recently bought a group of [employer] ks she is taking care of. She [...] Grass IgE Class 0 kU/L <0.10 Cockroach, Faroese IgE Class 0 kU/L <0.10 ALLERGEN ALTERNARIA ALTERNATA IGE Class 0 kU/L <0.10 Trotter Marci IgE Class I kU/L 0.41 (A) [place] IgE Class II kU/L 0.75 (A) SILVER BIRCH, IGE Class I kU/L 0.34 (A) Dallas Tree IgE Class 0/I kU/L 0.18 (A) Rodanthe Tree IgE Class I kU/L 0.47 (A) Pigweed Grass IgE Class 0 kU/L <0.10 Honduran Thistle IgE Class 0 kU/L <0.10 Allergen Ragweed, Western Class 0/I kU/L 0.13 (A) Absolute eosinophils 09-04-2018: 400 Imaging: CXR 06-22-19 at [facility]: Impression: No acute cardiopulmonary abnormality - Dr Rush Hidalgo CXR 09-10-2018: FINDINGS: No consolidation or interstitial infiltrate is identified. Costophrenic angles ar e well defined. Cardiomediastinal contours are stable. IMPRESSION: 1. No acute cardiopulmonary disease. Pulmonary Function Test: 09-10-19 at [facility] FEV1: 1.19/36 2.06/63 FVC: 2.58/66 4.04/103 [...] will order this toda y for the [facility] in [place]. Locally, our sleep centers are not performing te sting due to COVID19. I am not sure if [facility] are open and testing right now [...] if questions or concerns arise. MARC Skaggs [facility] PULMONOLOGY [address] [place] [address] Dept: [phone] FAX: [phone] I have discussed my findings and plan [...] [place], | | | | | | [place] [address] | | | | | | [phone] | | | | | | | [...]
--- OUTSIDE RECORDS SUMMARY | ~2019-12-10 | XMS | Encounter Summary ---
Demographics + + + | Address | [address] | | | [place] [address] | + + + | Home Phone | | + + + | Preferred Language | Unknown | + + + | Marital Status | | + + + | Bahai Affiliation | Unknown | + + + | Race | Unknown | + + + | Ethnic Group | Unknown | + + + Author + + + | Author | [facility] | | | and Sumanthana | + + + | Organization | [facility] | | | and [...] Team Providers + +------+ + | Care Message Broker Developer Name | Role | Phone | + +------+ + | Leeanne Denny | PCP | | + +------+ + Reason for Visit +--------+ + | Reason | Comments | +--------+ + | Other | request records from [place] [facility] | +--------+ + Encounter Details +--------+ + + + + | Date | Type | Department | Care Team | Description | +--------+ + + + + | 11/02/ | Documentati | [facility] | Keerthi, | Other (request | | 2020 | on | PULMONOLOGY [address] | [facility] | records from [place] | | | | KATHRIN COREA | Theatrical Trouper | sleep cntr) | | | | [place], [place] | | | | | | [address] | | | | | | [phone] | | | +--------+ + + + [...] of this encounter Progress Notes Juli Pendleton, Support Architect - 11/03/2019 10:03 AM PDTCalled to [facility] for them to fax records or call me back . documented in this encounter Plan of Treatment +--------+ + + + + | Date | Type | Specialty | Care Team | Description | +--------+ + + + + | 12/22/ | Virtual | Pulmonology | Ramandeep Betts, | | | 2020 | Office | | MULTIPLE EFFECT EVAPORATOR OPERATOR [address] | | | | Visit | | DR [place], | | | | | | [place] [address] | | | | | | [phone] | | | | | | | | +--------+ + + + + documented as of this encounter Visit Diagnoses Not on filedocumented in this encounter"
--- OUTSIDE RECORDS SUMMARY | ~2019-12-10 | XMS | Encounter Summary ---
Demographics + + + | Address | [address] | | | [place] [address] | + + + | Home Phone | | + + + | Preferred Language | Unknown | + + + | Marital Status | | + + + | Druze Affiliation | Unknown | + + + | Race | Unknown | + + + | Ethnic Group | Unknown | + + + Author + + + | Author | [facility] | | | and Sumanthana | + + + | Organization | [facility] | | | and [place] [...] Team Providers + +------+ + | Care Deck Engine Operator Name | Role | Phone | [...] + + | 12/01/ | Documentati | [facility] | Keerthi, | Other (chart notes | | 2019 | on | PULMONOLOGY [address] | Juli Barrios [facility] | from PCP) | | | | [address] | Forensics Team Director | | | | | [place], [place] | | | | | | [address] | | | | | | [phone] | | | +--------+ + + + [...] of this encounter Progress Notes Juli Pendleton, Services Host - 12/02/2019 9:16 AM PDTReceived chart note [...] | | 2019 | Office | | CARDIOLOGY ASSOCIATE [address] | | | | Visit | | DR [place], | | | | | | [place] [address] | | | | | | [phone] | | | | | | | | +--------+ + + + + documented as of this encounter Visit Diagnoses Not on filedocumented in this encounter"
--- OUTSIDE RECORDS SUMMARY | ~2019-12-10 | XMS | Encounter Summary ---
Demographics + + + | Address | [address] | | | [place] [address] | + + + | Home Phone | | + + + | Preferred Language | Unknown | + + + | Marital Status | | + + + | Sikh Affiliation | Unknown | + + + | Race | Unknown | + + + | Ethnic Group | Unknown | + + + Author + + + | Author | [facility] | | | and Sumanthana | + + + | Organization | [facility] | | | and [place] [...] Team Providers + +------+ + | Care Marketing Operations Analyst Name | Role | Phone | + [...] + + | 12/02/ | Documentati | [facility] | Keerthi, | Other (faxed fasenra | | 2019 | on | PULMONOLOGY [address] | Juli Barrios, [facility] | papers) | | | | KATHRIN COREA | Dictaphone Transcriber | | | | | [place], [place] | | | | | | [address] | | | | | | [phone] | | | +--------+ + + + [...] of this encounter Progress Notes Juli Pendleton, Printer Floor Covering Assistant - 12/03/2019 11:54 AM PDTfaxed jason paper s and chart notes to . Confirmation recieved documented in this encounter Plan of Treatment +--------+ + + + + | Date | Type | Specialty | Care Team | Description | +--------+ + + + + | 12/22/ | Virtual | Pulmonology | Ramandeep Betts, | | 2019 | Office | | DRYING MACHINE TENDER [address] | | | | Visit | | DR [place], | | | | | | [place] [address] | | | | | | [phone] | | | | | | | | +--------+ + + + + documented as of this encounter Visit Diagnoses Not on filedocumented in this encounter"
[~2019-12-10 23:03] MED LIST changes: +IPRAT-ALBUT 0.5-3 ML INH; +PREDNISONE20 MG PO; +VENTOLIN HFA18 GM; +VENTOLIN HFA18 GM INH
[2019-12-10] MEDS ORDERED: LISINOPRIL-HCT1 EAC1 PO (23:25)
== END 2019-12-11 01:06 | disposition home or self-care (01) ==
LOC: ED 23:03
DX: S20.229A Contusion of unspecified back wall of thorax, initial encounter (principal); S60.221A Contusion of right hand, initial encounter; S50.11XA Contusion of right forearm, initial encounter; S80.212A Abrasion, left knee, initial encounter; S80.211A Abrasion, right knee, initial encounter; I10 Essential (primary) hypertension; J45.909 Unspecified asthma, uncomplicated; F17.200 Nicotine dependence, unspecified, uncomplicated; Z79.899 Other long term (current) drug therapy; Y04.2XXA Assault by strike against or bumped into by another person, initial encounter
CPT/HCPCS: 70450; 70486; 72125; 99284-25

== ENCOUNTER 2021-01-06 11:42 | Emergency (ER) | payer OTHER ==
[~2021-01-06] VITALS: Ht 160 cm; Wt 72.6 kg
[~2021-01-06 11:42] MED LIST changes: +LISINOPRIL-HCT1 EAC1 PO
--- OUTSIDE RECORDS SUMMARY | 2021-01-06 11:52 | XMS ---
PreManage Notification: DEE BELLO Security Stock Letterer Events No recent Security Events currently on file CRITERIA MET - [facility] Has Care Guidelines CARE PROVIDERS There are no care providers on record at this time. Guidelines Source: [employer] [place] Guidelines Date: 12/30/2019 Care Coordination: Member is currently not engaged in [employer] services. If Mental Health services are needed, please contact: Jaylan [phone] [place]/ [place] [phone] Crisis Line [phone] E.D. VISIT COUNT (12 MO.) 1 [facility] TOTAL 1 NOTE: Visits indicate total known visits. ED/UCC VISIT TRACKING (12 MO.) 01/06/2021 11:[address] [facility] [place] TYPE: Emergency COMPLAINT: - L SIDE FACIAL SWELLING,HEAD PAIN INPATIENT VISIT TRACKING (12 MO.) No inpatient visits to display in this time frame [email or web address]
[2021-01-06] MEDS ORDERED: HYDROCODON-ACE1 EA10 PO (16:19)
== END 2021-01-06 16:34 | disposition home or self-care (01) ==
LOC: ED 11:42
DX: S06.0X9A Concussion with loss of consciousness of unspecified duration, initial encounter (principal); S16.1XXA Strain of muscle, fascia and tendon at neck level, initial encounter; J45.909 Unspecified asthma, uncomplicated; I10 Essential (primary) hypertension; W01.198A Fall on same level from slipping, tripping and stumbling with subsequent striking against other object, initial encounter; F17.200 Nicotine dependence, unspecified, uncomplicated; Z79.52 Long term (current) use of systemic steroids
CPT/HCPCS: 70450; 70498; 80048; 84702; 84703; 85025; 99284-25; Q9967

== ENCOUNTER 2021-05-11 21:03 | Emergency (ER) | payer OTHER ==
[~2021-05-11] VITALS: Ht 160 cm; Wt 67.6 kg
[~2021-05-11 21:03] MED LIST changes: +HYDROCODON-ACE1 EA10 PO
--- OUTSIDE RECORDS SUMMARY | 2021-05-11 21:06 | XMS ---
PreManage Notification: DEE BELLO Security Digital Producer Events No recent Security Events currently on file CRITERIA MET - [facility] Has Care Guidelines CARE PROVIDERS There are no care providers on record at this time. Guidelines Source: [employer] [place] Guidelines Date: 12/30/2019 Care Coordination: Member is currently not engaged in [employer] services. If Mental Health services are needed, please contact: Jaylan [phone] [place]izwan/ [place] [phone] Crisis Line [phone] E.D. VISIT COUNT (12 MO.) [address] [facility] TOTAL 2 NOTE: Visits indicate total known visits. ED/UCC VISIT TRACKING (12 MO.) 05/11/2021 21:04 [facility] [place] TYPE: Emergency COMPLAINT: - NOSE BLEED 01/06/2021 11:44 [facility] [place] TYPE: Emergency COMPLAINT: - L SIDE FACIAL SWELLING,HEAD PAIN DIAGNOSES: - Fall on same level from slipping, tripping and stumbling with subsequent striking against other object, initial encounter - Essential (primary) hypertension - Unspecified asthma, uncomplicated - Concussion with loss of consciousness of unspecified duration, initial encounter - MCC (current) use of systemic steroids - Strain of muscle, fascia and tendon at neck level, initial encounter - Nicotine dependence, unspecified, uncomplicated INPATIENT VISIT TRACKING (12 MO.) No inpatient visits to display in this time frame [email or web address]
== END 2021-05-12 00:19 | disposition home or self-care (01) ==
LOC: ED 21:03
DX: S02.2XXA Fracture of nasal bones, initial encounter for closed fracture (principal); W22.8XXA Striking against or struck by other objects, initial encounter; J45.909 Unspecified asthma, uncomplicated; I10 Essential (primary) hypertension; F17.200 Nicotine dependence, unspecified, uncomplicated; Z79.899 Other long term (current) drug therapy; Z79.52 Long term (current) use of systemic steroids
CPT/HCPCS: 70160; 99283-25

== ENCOUNTER 2022-04-27 06:14 | Observation (INO) | payer OTHER ==
[~2022-04-27] VITALS: Ht 160 cm; Wt 71.8 kg
--- NOTE | ~2022-04-27 | OR ---
[facility] [address] [place] [address] [place], [place] [address] Draft DATE OF OPERATION: 04/28/2022 SURGEON: Gabriel English MD PREOPERATIVE DIAGNOSIS: Melena, hematemesis. POSTOPERATIVE DIAGNOSIS: Melena, hematemesis. PROCEDURES: 1. Esophagogastroduodenoscopy with biopsy. 2. Colonoscopy. ANESTHESIA: Monitored anesthesia care. ESTIMATED BLOOD LOSS: None. SPECIMEN: MELVI, antral biopsy. FINDINGS: Mild gastritis, negative colonoscopy. COMPLICATIONS: None. DISPOSITION: Stable to Postanesthesia Care Unit. INDICATIONS FOR PROCEDURE: The patient is a 36-year-old female, who presented to the Emergency Department with 2 weeks of melena and one day history of hematemesis. After stabilization, plan was made to prep the patient and proceed to the endoscopy room for EGD, colonoscopy, with possible biopsy. The risks and benefits of the procedure were explained to the patient including, but not limited to bleeding, infection, aspiration, perforation requiring surgical intervention, missed diagnosis including cancer, need for additional procedures, risk of anesthesia, DVT, PE, [place], stroke, and . The patient understood PATIENT NAME: DEE BELLO OPERATIVE REPORT DATE OF : 83 REPORT #: [id number] PHYSICIAN: GABRIEL ENGLISH MD PCP: AARON TUCKER PA-C REPORT IS CONFIDENTIAL AND NOT TO BE RELEASED WITHOUT AUTHORIZATION [facility] [address] [place], [place] [address] Draft risks and signed informed consent. PROCEDURE IN DETAIL: After transportation to the operating room and establishment of monitored anesthesia care, the patient was positioned in fashion. The endoscope was introduced through the oral cavity into the esophagus. No oropharyngeal or proximal esophageal lesions were noted. The endoscope was passed through the esophagus. There was no abnormality of motility noted. Gastroesophageal junction was noted at 40 cm. A small hiatal hernia was noted. Entry was made into the stomach. The endoscope was advanced along the greater curvature to the pyloric region. No lesions or ulcers were noted. There was mild gastritis in the antral region. This was biopsied. Also, a MELVI test for H pylori was obtained by biopsy. The duodenum was entered up to D2 and photographed. The endoscope was withdrawn into the antrum and retroflexed to view the cardia region, this was photographed. The endoscope was then withdrawn in retrograde fashion. Colonoscopy was then proceeded. A digital rectal exam was performed, no hemorrhoids were noted. A colonoscope was advanced all the way to the cecum upto the ileocecal valve. The ileocecal valve and appendiceal orifice were photographed. Bowel prep was moderate. Withdrawal proceeded. The colonoscope was carefully withdrawn with visualization through the cecum, ascending colon, transverse colon, descending colon, and sigmoid colon. No polyps or lesions were noted. No stigmata of bleeding was noted. Upon withdrawal into the rectum, retroflexion was performed and photographed. The colonoscope was then removed. The patient tolerated the procedure without any complications and was transferred in stable condition to Postanesthesia Care Unit. MD SERGE Delgado/BRIANA /[id number] Copies: ~ PATIENT NAME: DEE BELLO OPERATIVE REPORT DATE OF : 83 REPORT #: [id number] PHYSICIAN: GABRIEL ENGLISH MD PCP: AARON TUCKER PA-C REPORT IS CONFIDENTIAL AND NOT TO BE RELEASED WITHOUT AUTHORIZATION
[~2022-04-27 06:14] MED LIST changes: +AMOX TR-K CLV1 EAC1 PO
[2022-04-27] MEDS ORDERED: VENTOLIN HFA18 GM INH (11:45)
--- NOTE | 2022-04-27 13:50 | NUR ---
MED REC COMPLETE
--- NOTE | 2022-04-27 14:20 | NUR ---
CALLED DR ENGLISH REGARDING RT NASAL STENT AND LEFT DEVIATED SEPTUM AND ORDER TO PLACE NG. VERBAL ORDER TO DC NG ORDER AND BEGIN BOWEL PREP.
--- NOTE | 2022-04-27 15:14 | NUR ---
PT UP TO SHOWER, DENIES FURTHER NEEDS AT THIS TIME. INSTRUCTED LIBRARIAN HEAD LIGHT USE.
--- NOTE | 2022-04-27 16:15 | NUR ---
Spoke with Kyle. She lives in a 1 story home, 4 steps. NO issues getting in or out of home. DME is a nebulizer for asthma, she has meds for her nebulizer. She states finances are short, but she is ok. Was sick with covid and unable to work, now behind on her water bill. States she has made payment arrangements. She had food stamps, but is now over income. Discussed food bank in [facility], [facility], and speaking with [facility] to check for any other available funds as she has 3 children. Plans on dc to home when cleared medically. Denies other needs at this time.
--- NOTE | 2022-04-27 19:15 | NUR ---
bedside report from raj and lidia rn, iv fusing and pt denies needs - call light in reach.
--- NOTE | 2022-04-27 21:46 | NUR ---
scheduled stool softener given, see emar. no additional needs. call light in reach.
--- NOTE | 2022-04-27 23:45 | NUR ---
REMINDED AND EDUCATED PT ABOUT NPO AT MIDNIGHT FOR SCOPES TOMORROW - BOWEL PREP FINISHED. PT DENIES NAUSEA AND VOMITING - CONT. TO HAVE LOOSE LIQ. BM
--- NOTE | 2022-04-28 02:21 | NUR ---
VITALS, I/O AND NEW IV FLUID HUNG FOR PT. DENIES NEEDS, NPO, SLEEPING EASILY AWAKEN. CALL LIGHT IN REACH.
--- NOTE | 2022-04-28 09:20 | NUR ---
Patient in bed sleeping, eyes closed, respirations even and non labored. Patient has no notable distress. IV fluids infusing per provider order. Call light within reach.
--- NOTE | 2022-04-28 11:05 | NUR ---
ENTERED ROOM TO GIVE MEDICATIONS WITH NURSE. PATIENT AWAKE AND HAS A GOOD ATTITUDE. PREFORMED A HEAD TO TOE ASSESSMENT. PATIENT WANTED TO TAKE A SHOWER, SALINE LOCKED, WRAPPED IV WITH PLASIC AND TAPE. PROVIDED SUPPLIES FOR PATIENT TO SHOWER. BED LINENS CHANGED. PROVIDED A COMB AND HOT PACK FOR PATIENT. NURSE STARTED LR AFTER SHOWER. PATIENT IS RESTING COMFORTABLY, CALL LIGHT WITHIN REACH.
--- NOTE | 2022-04-28 11:44 | NUR ---
Albuteral treatment provided to patient per her request. Surgery dept here to get pt.
--- NOTE | 2022-04-28 13:12 | NUR ---
04/28/22 1312 Lisa Conteh 1301 PATIENT ARRIVES TO PACU AWAKE BUT CONFUSED AND TEARFUL. RESP EVEN AND UNLABORED, ROOM AIR SATS >98%. DENIES PAIN OR NAUSEA. 1305 PATIENT AWAKE BUT STILL TEARFUL AND EMBARRASED, STATING SHE WAS REALLY MEAN TO STAFF IN THE ENDO ROOM.RESP EVEN AND UNLABORED, ROOM AIR SATS >98%. CONTINUES TO DENY PAIN OR NAUSEA. 1310 PATIENT AWAKE AND MORE CALM. CONTINUES TO DENY PAIN OR NAUSEA. RESP EVEN AND UNLABORED, ROOM AIR SATS 100%.
--- NOTE | 2022-04-28 13:25 | NUR ---
Patient back to the medical floor. Pt is alert and oriented x4, no acute distress. Vital signs are stable. Hob elevated, airway open, respirations even and non labored.
[2022-04-28] MEDS ORDERED: PROTONIX40 MG PO (15:30)
--- NOTE | 2022-04-30 20:51 | EKG ---
[facility] [address] [facility] [place] [address] Signed Normal sinus rhythm Possible Left atrial enlargement Borderline ECG When compared with ECG of 22-JUN-2019 00:49, Vent. rate has decreased BY 47 BPM Non-specific change in ST segment in Inferior leads Non-specific change in ST segment in Anterior leads T wave inversion no longer evident in Inferior leads Nonspecific T wave abnormality no longer evident in Anterolateral leads Confirmed by Rad Vegas MD () on 04/30/2022 8:51:13 PM Electronically Signed By: RAD VEGAS MD 04/30/222050 PATIENT NAME: DEE BELLO Electrocardiogram DATE OF : 83 PHYSICIAN: RAD VEGAS MD REPORT #: [id number] REPORT IS CONFIDENTIAL AND NOT TO BE RELEASED WITHOUT AUTHORIZATION
--- NOTE | 2022-05-04 08:35 | CONS ---
[facility] [address], [place] [address] Signed DATE OF CONSULTATION: 04/27/2022 CHIEF COMPLAINT: Abdominal pain and CT findings. HISTORY OF PRESENT ILLNESS: Ms. Martinez is a very pleasant 36-year-old G4, P3, x3 female, who presented to the emergency department complaining of abdominal pain, abnormal stooling. Menarche at age 11. Menses have been near amenorrhea for a long time and then developed some spotting approximately 2 years ago. She has rare "actual periods" with a Mirena IUD, which has been in place for 7-8 years that was placed by Angelic Barros M.D. The patient reports that she is usually good about checking her IUD strings, the last time she checked was approximately 6 months ago. She reports that she has not had any regular gynecologic care in the past 8 years and that she is overdue for Pap smears. She is not interested in future fertility. She reports 1-2 years of severe debilitating cramps that happen occasionally. These are sharp, quick, and stabbing that radiate to the vagina. The patient reports that she had an ultrasound in the ER for this complaint approximately 1 year ago that was reportedly normal. Indeed a 04/08/2019 ultrasound demonstrates intrauterine device is appropriately placed within the endometrial canal. CT today demonstrates malposition of IUD with perforation through the anterior lower uterine segment. The patient reports bloody/black/tarry slimy stools smeared with bright red blood and hematemesis yesterday with the consistency of "motor oil plus Jewel-Aid." She reports a metallic taste to her emesis. She reports upper abdominal pain that radiates bilaterally, but stops above her pubic symphysis. She reports no significant dyspareunia or other abnormalities. PAST MEDICAL HISTORY: 1. Essential hypertension. 2. Mild asthma. PAST SURGICAL HISTORY: x2. FAMILY HISTORY: Noncontributory. SOCIAL HISTORY: She smokes approximately one-pack per day and denies illicit drug use. She works at [employer]. REVIEW OF SYSTEMS: Electronically Signed By: DIALLO PEARSON DO 05/04/22 0835 PATIENT NAME: DEE MARTINEZ CONSULTATION DATE OF : 83 REPORT #: [id number] PHYSICIAN: DIALLO PEARSON DO PCP: AARON TUCKER PA-C REPORT IS CONFIDENTIAL AND NOT TO BE RELEASED WITHOUT AUTHORIZATION [facility] [address], [place] [address] Signed A complete review of systems was performed and negative, except per HPI. PHYSICAL EXAMINATION: VITAL SIGNS: Temperature 98.6, pulse 85, respiratory rate 16, blood pressure somewhat elevated at 151/107, pulse ox 99%. GENERAL: The patient is a white female, sitting in the [facility] in no apparent distress. HEENT: Normocephalic, atraumatic. HEART: Regular rate and rhythm. LUNGS: Clear to auscultation bilaterally. NECK: Supple. Trachea midline with no masses. ABDOMEN: Soft, nondistended, nontender with no significant guarding and no rebound. EXTREMITIES: No edema. : Pelvic exam was performed with naturopathic physician in the room that demonstrates normal external genitalia. Normal clitoris, urethral meatus, bilateral Sierraville's, Bartholin's glands, perineum, and anus. On speculum exam, the patient with a moderate amount of dark appearing blood in the vagina. Good apical support of the cervix. The cervix appears normal with IUD strings approximately 3 cm in length. Bimanual exam was performed that demonstrates no tenderness of the pelvic floor, urethra, or bladder. No cervical motion tenderness. There is a small amount of discomfort with palpation of the uterus. No adnexal masses or discomfort. LABORATORY DATA: WBCs 10.5, hemoglobin 14.5, platelets 287. Coags; PT 12.4, INR 0.94. Sodium 136, potassium 4.3, chloride 104, CO2 of 25, BUN 16, creatinine 0.67, glucose 99, AST 16, ALT 32. HCG was negative. UA demonstrates blood and epithelial cells. IMAGING: CT of the abdomen and pelvis was performed and I reviewed the images as well as the report. Of significance from BALLASTER perspective, normal appearing uterus with no fibroids. An IUD is indeed malpositioned in the lower uterine segment of the anterior portion with the body approaching the bladder anteriorly. ASSESSMENT: 1. Malpositioned IUD. The patient with malpositioned IUD of unknown acuity likely nonacute. IUD has been in place for approximately 8 years and should be removed at some point. However, I do not think this is an emergent situation. We reviewed the position of the IUD that would prohibit simple removal by grasping the IUD strings. Recommended hysteroscopy to remove the embedded IUD and this procedure should be performed as an outpatient. Also recommended Pap smear as well as establishing a reliable form of contraception. She would be a fine candidate for an another Mirena IUD if she desires. The patient would like to follow up with myself in the office and we will coordinate perioperative care in the near future. Discussed these findings with Dr. Yanez and he and the patient are in agreement with this recommendation. Electronically Signed By: DIALLO PEARSON DO 05/04/22 0835 PATIENT NAME: DEE MARTINEZ CONSULTATION DATE OF : 83 REPORT #: [id number] PHYSICIAN: DIALLO PEARSON DO PCP: AARON TUCKER PA-C REPORT IS CONFIDENTIAL AND NOT TO BE RELEASED WITHOUT AUTHORIZATION [address] [place], [place] [address] Signed 2. GI bleeding. Hospitalist and likely general surgeon will be consulted for this and we will heed their recommendations. Diallo Pearson DO JDW/MODL /[id number] Copies: ~ Electronically Signed By: DIALLO PEARSON DO 05/04/22 0835 PATIENT NAME: DEE MARTINEZ CONSULTATION DATE OF : 83 REPORT #: [id number] PHYSICIAN: DIALLO PEARSON DO PCP: AARON TUCKER PA-C REPORT IS CONFIDENTIAL AND NOT TO BE RELEASED WITHOUT AUTHORIZATION
--- NOTE | 2022-05-04 15:36 | PATH ---
[facility] [address] [facility] [place], [place] [address] Signed THIS IS AN ADDENDUM REPORT SPECIMEN(S): A ANTRUM/PYLORUS BIOPSY SPECIMEN SOURCE: A. ANTRUM/PYLORUS BIOPSY CLINICAL HISTORY: Melena. Post-op: Mild gastritis, no ulcers, hiatal hernia. Negative colonoscopy. Gastrointestinal bleeding. FINAL PATHOLOGIC DIAGNOSIS: Stomach, antrum/pylorus, biopsy: - No significant histopathologic alterations. COMMENT: The sections through the gastric biopsies show fragments of histologically unremarkable antral and oxyntic mucosa. There is no evidence of acute or chronic inflammation. There is no evidence of H. pylori, intestinal metaplasia, abnormal infiltrates or neoplasia. TWK:em:C2NR MICROSCOPIC EXAMINATION: Histologic sections of all submitted blocks are examined by light microscopy. These findings, together with the gross examination, support the pathologic diagnosis. GROSS DESCRIPTION: The specimen, labeled "SM, antrum biopsy," is received in formalin and consists of three velasquez soft tissue fragments that measure 0.1 cm in greatest dimension. The specimen is entirely submitted in cassette (A1). JS (under the direct supervision of a pathologist) The Gross Description was prepared using a voice recognition system. The report was reviewed for accuracy; however, sound-alike word errors, addition and/or deletions may occur. If there is any question about this report, please contact Client Services. PERFORMING LABORATORY: The technical component was performed by [facility], [address] [place] [id number] (CLIA# [id number]). The professional interpretation was PATIENT NAME: DEE BELLO PATHOLOGY DATE OF : 83 REPORT #: [id number] PHYSICIAN: JORGE ALBERTO BLACK PCP: AARON TUCKER PA-C REPORT IS CONFIDENTIAL AND NOT TO BE RELEASED WITHOUT AUTHORIZATION [facility] [address] [place], [place] [address] [facility]igned [facility], [address] [place] [address] (CLIA#: [id number]). ADDITIONAL NOTES: Immunohistochemical and/or in situ hybridization studies were performed on this case with the appropriate positive controls that react as expected. This test was developed and its performance characteristics determined by [facility]. It has not been cleared or approved by the U.S. Food and Drug Administration. The FDA has determined that such clearance or approval is not necessary. This test is used for clinical purposes. It should not be regarded as investigational or for research. [facility] is certified under the Clinical Laboratory Improvement Amendments of 1988 (CLIA) as qualified to perform high complexity clinical laboratory testing. This assay has not been validated for specimens that have been decalcified. The technical component was performed by [facility], [address] [place] [id number] (CLIA# [id number]). The professional interpretation was performed by [facility], [address] [place] [address] (CLIA#: [id number]). REASON FOR ADDENDUM: To add results of additional testing. ADDENDUM COMMENT: Helicobacter pylori immunohistochemical stain is negative. Control slide stained appropriately positive. There is no change in the above diagnosis. TWK:conrad Diagnostician: Aamir Michel MD Pathologist Electronically Signed 05/04/2022 Copies: ~ PATIENT NAME: DEE BELLO PATHOLOGY DATE OF : 83 REPORT #: [id number] PHYSICIAN: JORGE ALBERTO PATHOLOGY PCP: AARON TUCKER PA-C REPORT IS CONFIDENTIAL AND NOT TO BE RELEASED WITHOUT AUTHORIZATION
== END 2022-04-28 15:45 | disposition home or self-care (01) ==
LOC: ED 06:14 → MS 06:16
PROVIDERS: Surgery; ADMIT Internal Medicine; ATTEND Internal Medicine
PROC: 0DB68ZX Excision of Stomach, Via Natural or Artificial Opening Endoscopic, Diagnostic (ICD-10-PCS; principal; 2022-04-28 13:15)
PROC: 0DJD8ZZ Inspection of Lower Intestinal Tract, Via Natural or Artificial Opening Endoscopic (ICD-10-PCS; 2022-04-28 13:15)
DX: K29.71 Gastritis, unspecified, with bleeding (principal); K92.1 Melena; I10 Essential (primary) hypertension; T83.32XA Displacement of intrauterine contraceptive device, initial encounter; E27.8 Other specified disorders of adrenal gland; J45.909 Unspecified asthma, uncomplicated; F17.210 Nicotine dependence, cigarettes, uncomplicated; K44.9 Diaphragmatic hernia without obstruction or gangrene
CPT/HCPCS: 00731; 36415; 74177; 80048; 80053; 81001; 83690; 84703; 85025; 85610; 86850; 86900; 86901; 86922; 87077; 96361; 96375; 96376; 99285-25; A9270; C9113; C9803; G0378; J2060; J2270; J2405; J2704; J7030; J7121; Q9967; U0003

== ENCOUNTER 2025-01-15 12:07 | Emergency (ER) | payer OTHER ==
[~2025-01-15] VITALS: Ht 160 cm; Wt 74.0 kg
[~2025-01-15 12:07] MED LIST changes: +CYCLOBENZAPRINE5 MG PO; +PROTONIX40 MG PO
[2025-01-15] MEDS ORDERED: LISINOPRIL-HCT1 EAC1 PO (12:55)
[2025-01-15 14:22] VITALS: BP 158/106
== END 2025-01-15 14:22 | disposition home or self-care (01) ==
LOC: ED 12:07
DX: S09.90XA Unspecified injury of head, initial encounter (principal); M54.2 Cervicalgia; I10 Essential (primary) hypertension; J45.909 Unspecified asthma, uncomplicated; F17.200 Nicotine dependence, unspecified, uncomplicated; W18.30XA Fall on same level, unspecified, initial encounter; Y93.H2 Activity, gardening and landscaping; Y92.007 Garden or yard of unspecified non-institutional (private) residence as the place of occurrence of the external cause
CPT/HCPCS: 70450; 72125; 99283-25

== ENCOUNTER 2025-05-07 18:25 | Emergency (ER) | payer OTHER ==
[~2025-05-07] VITALS: Ht 160 cm; Wt 77.9 kg
[2025-05-07 23:00] VITALS: BP 183/117
== END 2025-05-07 23:00 | disposition left against medical advice (07) ==
LOC: ED 18:25
DX: S61.216A Laceration without foreign body of right little finger without damage to nail, initial encounter (principal); Z53.21 Procedure and treatment not carried out due to patient leaving prior to being seen by health care provider; W26.8XXA Contact with other sharp object(s), not elsewhere classified, initial encounter

== ENCOUNTER 2025-05-10 21:02 | Emergency (ER) | payer OTHER ==
[~2025-05-10] VITALS: Ht 160 cm; Wt 79.7 kg
--- OUTSIDE RECORDS SUMMARY | 2025-05-10 21:09 | XMS ---
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 ED/UCC VISIT TRACKING (12 MO.) 05/10/2025 21:02 [facility] TYPE: Emergency COMPLAINT: - STROKE SYMPTOMS 05/07/2025 18:26 [facility] TYPE: Emergency COMPLAINT: - RT FINGER LACERATION 01/15/2025 12:08 [facility] TYPE: Emergency COMPLAINT: - FALL DIAGNOSES: - Activity, gardening and landscaping - Cervicalgia - Essential (primary) hypertension - Fall on same level, unspecified, initial encounter - Garden or yard of unspecified non-institutional (private) residence as the place of occurrence of the external cause - Nicotine dependence, unspecified, uncomplicated - Unspecified asthma, uncomplicated - Unspecified injury of head, initial encounter INPATIENT VISIT TRACKING (12 MO.) No inpatient visits to display in this time frame [id number]
[2025-05-10] MEDS ORDERED: IBLOOD GLUCOSE TEST STRIP 1 EA TEST XX ONE (21:15)
[2025-05-10 21:17] LABS: BASOPHILS 0.8 % (0.1-1.2); EOSINOPHILS 3.4 % (0.7-5.8); LYMPHOCYTES 43.1 % (19.3-51.7); MCH 32.4 PG (25.6-32.2); MCHC 35.2 g/dL (32.2-35.5); MCV 92.0 fL (79.4-94.8); MONOCYTES 7.8 % (4.7-12.5); NEUTROPHILS 44.5 % (34.0-71.1); RBC 4.88 M/uL (3.93-5.22)
[2025-05-10 21:26] LABS: INR 0.92 (0.80-1.30); PROTIME 11.7 Sec (11.2-14.2)
[2025-05-10] MEDS ORDERED: ENALAPRILAT DIHYDRATE 1.25 MG/ML VIAL IV ONE (21:30)
[2025-05-10 21:44] LABS: ALT (SGPT) 35.0 U/L (14-59); AST (SGOT) 21.0 U/L (15-37); GLOMERULAR FILTRATION RATE,EST 119.0 mL/min (>60); PROTEIN, TOTAL 7.7 g/dL (6.4-8.2); UREA NITROGEN 8.0 mg/dL (7-18)
[2025-05-10 22:07] LABS: BLOOD/HGB, URINE NEGATIVE (Negative); KETONE, URINE NEGATIVE (Negative); LEUK ESTERASE, URINE NEGATIVE (negative); NITRITE, URINE NEGATIVE (negative)
[2025-05-10] MEDS ORDERED: ACETAMINOPHEN 500 MG TAB PO ONE (22:15)
[2025-05-10 22:24] LABS: AMPHETAMINES, URINE POSITIVE (NEGATIVE); BARBITURATES, URINE NEGATIVE (NEGATIVE); BENZODIAZEPINE, URINE NEGATIVE (NEGATIVE); CANNABINOID, URINE NEGATIVE (NEGATIVE); COCAINE, URINE NEGATIVE (NEGATIVE); ECSTASY, URINE NEGATIVE (NEGATIVE); FENTANYL, URINE NEGATIVE (NEGATIVE); METHADONE, URINE NEGATIVE (NEGATIVE); OPIATES, URINE NEGATIVE (NEGATIVE); OXYCODONE, URINE NEGATIVE (NEGATIVE); PHENCYCLIDINE, URINE NEGATIVE (NEGATIVE)
[2025-05-10] MEDS ORDERED: LISINOPRIL20 MG PO (23:25)
--- NOTE | 2025-05-11 21:36 | EKG ---
[facility] [address] [facility] [place] [address] Signed Sinus tachycardia Right atrial enlargement Borderline ECG When compared with ECG of 28-APR-2022 11:28, Non-specific change in ST segment in Inferior leads T wave inversion now evident in Inferior leads Confirmed by Rad Vegas MD () on 05/11/2025 9:36:39 PM Electronically Signed By: RAD VEGAS MD 05/11/25 2136 PATIENT NAME: DEE BELLO MICHAEL Electrocardiogram DATE OF : 83 PHYSICIAN: RAD VEGAS MD REPORT #: [id number] REPORT IS CONFIDENTIAL AND NOT TO BE RELEASED WITHOUT AUTHORIZATION
== END 2025-05-10 23:40 | disposition home or self-care (01) ==
LOC: ED 21:02
PROVIDERS: Family Medicine
DX: I10 Essential (primary) hypertension (principal); J45.909 Unspecified asthma, uncomplicated; F17.200 Nicotine dependence, unspecified, uncomplicated
CPT/HCPCS: 36415; 70450; 70496; 70498; 80053; 80307; 81003; 84484; 84703; 85025; 85610; 85730; 93005; 93010; 96374; 99284-25; A9270; Q9967